=== PATIENT | female | born 1955 | race Caucasian/White ===

== ENCOUNTER → 2017-06-11 | Outpatient (CLI) | payer OTHER ==
[~2017-06-11] MED LIST: ADVI200C3 PO; ATOR40TA75 PO; CALCTAB88 PO; CALCTAB97 PO; CYMB60CA3 PO; LISI10TA4 PO; MELO15TA4 PO; METO50TA7 PO; MULTCAP PO; OMEP40CA2 PO; PRIL20CA9 PO
[2017-06-11 15:29] LABS: BASO % 0.3 % (0.0-1.0); EOS # 0.2 K/mm3 (0.0-0.50); EOS % 1.8 % (0.0-3.0); LARGE UNSTAINED CELL # 0.1 K/mm3 (0.0-0.4); LYMPH # 2.9 K/mm3 (1.5-4.5); LYMPH % 27.7 % (24.0-44.0); MEAN CORPUSCULAR HEMOGLOBIN 31.3 pg (27.0-33.0); MEAN CORPUSCULAR HGB CONC 34.1 g/dl (32.0-36.5); MEAN CORPUSCULAR VOLUME 91.8 fl (80.0-96.0); MONO # 0.4 K/mm3 (0.0-0.8); MONO % 4.4 % (0.0-5.0); NEUTROPHILS # 6.5 K/mm3 (1.8-7.7); NEUTROPHILS % 64.8 % (36.0-66.0); PLATELET COUNT, AUTOMATED 359 k/mm3 (150-450); RED CELL DISTRIBUTION WIDTH 12.8 % (11.5-14.5); WHITE BLOOD COUNT 10.1 K/mm3 (4.0-10.0)
[2017-06-11 16:20] LABS: ALBUMIN 3.8 GM/DL (3.2-5.2); ALBUMIN/GLOBULIN RATIO 1.15 (1.00-1.93); ALKALINE PHOSPHATASE 74 U/L (45-117); ALT/SGPT 43 U/L (12-78); ANION GAP 9 MEQ/L (8-16); AST/SGOT 53 U/L (15-37); BILIRUBIN,TOTAL 0.7 MG/DL (0.2-1.0); BLOOD UREA NITROGEN 15 MG/DL (7-18); CALCIUM LEVEL 9.4 MG/DL (8.8-10.2); CARBON DIOXIDE LEVEL 29 MEQ/L (21-32); CHLORIDE LEVEL 94 MEQ/L (98-107); CHOLESTEROL LEVEL 188 MG/DL (<200); CREATININE FOR GFR 0.74 MG/DL (0.55-1.02); GLOMERULAR FILTRATION RATE > 60.0 (>45); GLUCOSE, FASTING 97 MG/DL (80-110); POTASSIUM SERUM 3.8 MEQ/L (3.5-5.1); SODIUM LEVEL 132 MEQ/L (136-145); TOTAL PROTEIN 7.1 GM/DL (6.4-8.2); TRIGLYCERIDES LEVEL 126 MG/DL (<150)
== END ==
LOC: M LAB 15:05
PROVIDERS: ATTEND Family Medicine
DX: I10 Essential (primary) hypertension (principal)

== ENCOUNTER → 2017-09-12 | Outpatient (CLI) | payer OTHER ==
--- NOTE | 2017-09-12 17:14 | REP ---
LEFT WRIST: Four views: There is no evidence of an acute fracture, dislocation or intrinsic bone disease. I do not see significant arthritic changes. IMPRESSION: No fracture or dislocation. Further evaluation may be made with MRI if clinically indicated. Signed by Philippe Hennessy MD 09/13/2017 04:55 P
== END ==
LOC: M RAD 15:51
PROVIDERS: ATTEND Family Medicine
DX: M25.532 Pain in left wrist (principal)

== ENCOUNTER → 2018-02-03 | Outpatient (CLI) | payer OTHER | LOC: M WHC 15:13 | DX: Z12.31 Encounter for screening mammogram for malignant neoplasm of breast (principal) | CPT/HCPCS: 77067 ==

== ENCOUNTER → 2018-03-20 | Outpatient (CLI) | payer OTHER ==
[2018-03-20 14:32] LABS: BASO % 0.3 % (0.0-1.0); EOS # 0.1 10^3/uL (0.0-0.50); EOS % 0.4 % (0.0-3.0); HEMATOCRIT 35.4 % (36.0-47.0); HEMOGLOBIN 12.7 g/dl (12.0-15.5); IMMATURE GRANULOCYTE % 0.2 % (0-3.0); LYMPH # 2.5 10^3/uL (1.5-4.5); LYMPH % 17.8 % (24.0-44.0); MEAN CORPUSCULAR HEMOGLOBIN 31.8 pg (27.0-33.0); MEAN CORPUSCULAR HGB CONC 35.9 g/dl (32.0-36.5); MEAN CORPUSCULAR VOLUME 88.5 fl (80.0-96.0); MONO # 0.9 10^3/uL (0.0-0.8); MONO % 6.2 % (0.0-5.0); NEUTROPHILS # 10.5 10^3/uL (1.8-7.7); NEUTROPHILS % 75.1 % (36.0-66.0); PLATELET COUNT, AUTOMATED 357 10^3/uL (150-450); RED CELL DISTRIBUTION WIDTH 11.9 % (11.5-14.5)
[2018-03-20 15:19] LABS: ALBUMIN 3.9 GM/DL (3.2-5.2); ALBUMIN/GLOBULIN RATIO 1.22 (1.00-1.93); ALKALINE PHOSPHATASE 82 U/L (45-117); ALT/SGPT 28 U/L (12-78); ANION GAP 8 MEQ/L (8-16); AST/SGOT 21 U/L (7-37); BILIRUBIN,TOTAL 0.5 MG/DL (0.2-1.0); BLOOD UREA NITROGEN 25 MG/DL (7-18); CALCIUM LEVEL 9.3 MG/DL (8.8-10.2); CARBON DIOXIDE LEVEL 31 MEQ/L (21-32); CHLORIDE LEVEL 97 MEQ/L (98-107); CHOLESTEROL LEVEL 183 MG/DL (<200); CHOLESTEROL RISK RATIO 3.452 (<5); CREATININE FOR GFR 0.94 MG/DL (0.55-1.30); GLOMERULAR FILTRATION RATE > 60.0 (>45); GLUCOSE, FASTING 93 MG/DL (70-100); HDL CHOLESTEROL 53 MG/DL (>40); NON-HDL-C 130 MG/DL; POTASSIUM SERUM 3.6 MEQ/L (3.5-5.1); SODIUM LEVEL 136 MEQ/L (136-145); TOTAL PROTEIN 7.1 GM/DL (6.4-8.2); TRIGLYCERIDES LEVEL 180 MG/DL (<150)
== END ==
LOC: M LAB 13:57
DX: I10 Essential (primary) hypertension (principal)
CPT/HCPCS: 80053

== ENCOUNTER → 2018-03-26 | Outpatient (REF) | payer OTHER ==
[2018-04-05 00:12] LABS: FATS NEUTRAL Normal (.); FATS TOTAL Normal (.); PANCREATIC ELASTASE STOOL 366 (>200)
== END ==
LOC: M LAB REF 09:03
DX: R19.7 Diarrhea, unspecified (principal)
CPT/HCPCS: 82705

== ENCOUNTER → 2018-03-27 | Outpatient (CLI) | payer OTHER ==
[~2018-03-27] MED LIST changes: -ADVI200C3 PO; -ATOR40TA75 PO; -CALCTAB88 PO; -CALCTAB97 PO; -CYMB60CA3 PO; +GLUCAGON FOR INJ 1 MG VIAL (J1610) As Ordered; +ISOVUE-370 76% 100ML VIAL (Q9967) As Ordered; -LISI10TA4 PO; -MELO15TA4 PO; -METO50TA7 PO; -MULTCAP PO; -OMEP40CA2 PO; -PRIL20CA9 PO; +VoLumen 0.1% SUSPENSION 450ML BOTTLE As Ordered
== END ==
LOC: M RAD 08:44
DX: K52.89 Other specified noninfective gastroenteritis and colitis (principal); I70.0 Atherosclerosis of aorta
CPT/HCPCS: Q9967

== ENCOUNTER → 2018-04-04 | Outpatient (CLI) | payer OTHER ==
[2018-04-08 00:07] LABS: CHROMOGRANIN A 2 nmol/L (0-5); TISSUE TRANSGLUTAMINASE IgA <2 U/mL (0-3)
[2018-04-08 00:07] LABS: GASTRIN 63 pg/mL (0-115)
== END ==
LOC: M LAB 11:27
DX: R19.7 Diarrhea, unspecified (principal)
CPT/HCPCS: 82941

== ENCOUNTER 2018-04-28 11:22 | Day surgery (SDC) | payer OTHER ==
[2018-04-28] MEDS: NS 1,000 ML IV (11:45)
[2018-04-28] MEDS ORDERED: PROPOFOL 200 MG/20 ML VIAL As Ordered ×2 (12:33)
[2018-04-28] MEDS ORDERED: LIDOCAINE 2% INJ 100 MG/5 ML SDV (FOR ANES.) As Ordered (12:33)
[2018-04-28] MEDS ORDERED: fentaNYL 100 MCG/2 ML INJECTION (J3010) As Ordered (12:41)
== END 2018-04-28 14:17 | disposition home or self-care (01) ==
LOC: M OPP 11:22
DX: K52.9 Noninfective gastroenteritis and colitis, unspecified (principal); D12.2 Benign neoplasm of ascending colon; Q43.8 Other specified congenital malformations of intestine; I10 Essential (primary) hypertension; E78.5 Hyperlipidemia, unspecified; K21.9 Gastro-esophageal reflux disease without esophagitis; M19.90 Unspecified osteoarthritis, unspecified site; M54.89 Other dorsalgia; M54.2 Cervicalgia; F41.9 Anxiety disorder, unspecified; F32.9 Major depressive disorder, single episode, unspecified; G43.909 Migraine, unspecified, not intractable, without status migrainosus; F17.210 Nicotine dependence, cigarettes, uncomplicated; Z79.899 Other long term (current) drug therapy
CPT/HCPCS: 45385

== ENCOUNTER → 2018-05-02 | Outpatient (CLI) | payer OTHER ==
[2018-05-02 16:06] LABS: BASO % 0.4 % (0.0-1.0); EOS # 0.1 10^3/uL (0.0-0.50); EOS % 0.9 % (0.0-3.0); HEMATOCRIT 35.5 % (36.0-47.0); HEMOGLOBIN 12.8 g/dl (12.0-15.5); IMMATURE GRANULOCYTE % 0.2 % (0-3.0); LYMPH # 2.7 10^3/uL (1.5-4.5); LYMPH % 31.9 % (24.0-44.0); MEAN CORPUSCULAR HEMOGLOBIN 32.6 pg (27.0-33.0); MEAN CORPUSCULAR HGB CONC 36.1 g/dl (32.0-36.5); MEAN CORPUSCULAR VOLUME 90.3 fl (80.0-96.0); MONO # 0.6 10^3/uL (0.0-0.8); MONO % 6.9 % (0.0-5.0); NEUTROPHILS % 59.7 % (36.0-66.0); PLATELET COUNT, AUTOMATED 351 10^3/uL (150-450); RED BLOOD COUNT 3.93 10^6/uL (4.00-5.40); WHITE BLOOD COUNT 8.4 10^3/uL (4.0-10.0)
== END ==
LOC: M LAB 15:45
DX: D72.829 Elevated white blood cell count, unspecified (principal)
CPT/HCPCS: 85025

== ENCOUNTER → 2018-10-03 | Outpatient (CLI) | payer OTHER ==
[~2018-10-03] MED LIST changes: +ADVI200C3 PO; +ALKATAB PO; +ATOR40TA75 PO; +BUDE3CAP PO; +CALCTAB88 PO; +CALCTAB97 PO; +CHLO25TA PO; +CYMB60CA3 PO; +GABA-843 PO; -GLUCAGON FOR INJ 1 MG VIAL (J1610) As Ordered; -ISOVUE-370 76% 100ML VIAL (Q9967) As Ordered; +LISI10TA4 PO; +LOPE2CAP PO; +MAGN400T2 PO; +MELO15TA28 PO; +METO50TA7 PO; +MULTCAP PO; +OMEP40CA2 PO; +PRIL20CA9 PO; +SERT-138 PO; -VoLumen 0.1% SUSPENSION 450ML BOTTLE As Ordered
[2018-10-03 18:14] LABS: BASO # 0.1 10^3/uL (0.0-0.2); BASO % 0.4 % (0.0-1.0); EOS # 0.1 10^3/uL (0.0-0.50); EOS % 0.9 % (0.0-3.0); HEMATOCRIT 35.3 % (36.0-47.0); HEMOGLOBIN 12.5 g/dl (12.0-15.5); LYMPH % 29.1 % (24.0-44.0); MEAN CORPUSCULAR HEMOGLOBIN 32.3 pg (27.0-33.0); MEAN CORPUSCULAR HGB CONC 35.4 g/dl (32.0-36.5); MEAN CORPUSCULAR VOLUME 91.2 fl (80.0-96.0); MONO # 0.8 10^3/uL (0.0-0.8); MONO % 5.5 % (0.0-5.0); NEUTROPHILS # 8.9 10^3/uL (1.8-7.7); NEUTROPHILS % 63.8 % (36.0-66.0); PLATELET COUNT, AUTOMATED 430 10^3/uL (150-450); RED BLOOD COUNT 3.87 10^6/uL (4.00-5.40); WHITE BLOOD COUNT 13.9 10^3/uL (4.0-10.0)
[2018-10-03 18:36] LABS: ALT/SGPT 35 U/L (12-78); BILIRUBIN,TOTAL 0.5 MG/DL (0.2-1.0); BLOOD UREA NITROGEN 21 MG/DL (7-18); CARBON DIOXIDE LEVEL 28 MEQ/L (21-32); CHLORIDE LEVEL 100 MEQ/L (98-107); CHOLESTEROL LEVEL 232 MG/DL (<200); CHOLESTEROL RISK RATIO 5.948 (<5); CREATININE FOR GFR 0.99 MG/DL (0.55-1.30); GLOMERULAR FILTRATION RATE > 60.0 (>45); GLUCOSE, FASTING 104 MG/DL (70-100); HDL CHOLESTEROL 39 MG/DL (>40); LDL CHOLESTEROL 130 MG/DL (<100); NON-HDL-C 193 MG/DL; POTASSIUM SERUM 3.8 MEQ/L (3.5-5.1); SODIUM LEVEL 135 MEQ/L (136-145); TOTAL PROTEIN 7.3 GM/DL (6.4-8.2); TRIGLYCERIDES LEVEL 317 MG/DL (<150)
== END ==
LOC: M LAB 17:41
PROVIDERS: ATTEND Physician Assistant
DX: Z00.00 Encounter for general adult medical examination without abnormal findings (principal); I10 Essential (primary) hypertension

== ENCOUNTER → 2018-10-07 | Outpatient (CLI) | payer OTHER | LOC: M LAB 15:49 | PROVIDERS: ATTEND Family Medicine | DX: R30.0 Dysuria (principal) ==

== ENCOUNTER → 2018-10-08 | Outpatient (REF) | payer OTHER ==
[2018-10-08 10:12] LABS: APPEARANCE, URINE HAZY (CLEAR); BACTERIA, URINE AUTO NEGATIVE (NEGATIVE); BILIRUBIN, URINE AUTO NEGATIVE (NEGATIVE); BLOOD, URINE BLOOD NEGATIVE (NEGATIVE); COLOR, URINE YELLOW (YELLOW); GLUCOSE, URINE (UA) AUTO NEGATIVE (NEGATIVE); KETONE, URINE AUTO NEGATIVE (NEGATIVE); LEUKOCYTE ESTERASE, URINE AUTO NEGATIVE (NEGATIVE); MUCUS, URINE SMALL (NEGATIVE); NITRITE, URINE AUTO NEGATIVE (NEGATIVE); PROTEIN, URINE AUTO NEGATIVE (NEGATIVE); RBC, URINE AUTO 4 /HPF (0-3); SPECIFIC GRAVITY URINE AUTO 1.011 (1.002-1.035); SQUAMOUS EPITHELIAL CELL UR AU 0 /HPF (0-6); UROBILINOGEN, URINE AUTO 0.2 mg/dL (0.0-2.0); WBC, URINE AUTO 2 /HPF (0-3)
== END ==
LOC: M LAB REF 09:44
PROVIDERS: ATTEND Family Medicine
DX: R30.0 Dysuria (principal)

== ENCOUNTER → 2018-10-27 | Outpatient (REF) | payer OTHER | LOC: M LAB REF 15:04 | PROVIDERS: ATTEND Internal Medicine Gastroenterology | DX: R19.7 Diarrhea, unspecified (principal) ==

== ENCOUNTER → 2019-01-27 | Outpatient (CLI) | payer OTHER ==
[2019-01-27 16:24] LABS: BASO % 0.4 % (0.0-1.0); EOS # 0.1 10^3/uL (0.0-0.50); EOS % 0.9 % (0.0-3.0); HEMATOCRIT 33.8 % (36.0-47.0); HEMOGLOBIN 11.7 g/dl (12.0-15.5); LYMPH # 3.8 10^3/uL (1.5-4.5); LYMPH % 41.4 % (24.0-44.0); MEAN CORPUSCULAR HEMOGLOBIN 31.7 pg (27.0-33.0); MEAN CORPUSCULAR HGB CONC 34.6 g/dl (32.0-36.5); MEAN CORPUSCULAR VOLUME 91.6 fl (80.0-96.0); MONO # 0.6 10^3/uL (0.0-0.8); MONO % 6.5 % (0.0-5.0); NEUTROPHILS # 4.6 10^3/uL (1.8-7.7); NEUTROPHILS % 50.6 % (36.0-66.0); PLATELET COUNT, AUTOMATED 384 10^3/uL (150-450); RED BLOOD COUNT 3.69 10^6/uL (4.00-5.40); WHITE BLOOD COUNT 9.1 10^3/uL (4.0-10.0)
[2019-01-27 16:48] LABS: CALCIUM LEVEL 8.6 MG/DL (8.8-10.2); CREATININE FOR GFR 1.13 MG/DL (0.55-1.30); GLOMERULAR FILTRATION RATE 51.9 (>45); POTASSIUM SERUM 4.2 MEQ/L (3.5-5.1)
[2019-01-27 18:05] LABS: HEMOGLOBIN A1c 5.8 %
== END ==
LOC: M LAB 15:52
PROVIDERS: ATTEND Physician Assistant
DX: R73.01 Impaired fasting glucose (principal)

== ENCOUNTER → 2019-04-23 | Outpatient (CLI) | payer OTHER ==
--- NOTE | 2019-04-23 17:02 | REPMRS ---
Patient History The patient states she had a clinical breast exam in 05/2019. Patient is postmenopausal and is nulliparous. No known family history of cancer. No Hormone Replacement Therapy 3D TOMOSYNTHESIS WAS PERFORMED. [facility] for [facility] cancer [facility] 6.9%. Digital Woman Screen Mammo: April 23, 2019 - Exam #: [id number] Bilateral CC and MLO view(s) were taken. Technologist: Liza Lewis, Technologist Prior study comparison: February 03, 2018, digital woman screen mammo performed at [facility]. 2016, bilateral digital mammo screening bilat, performed at [facility]. FINDINGS: The breast tissue is heterogeneously dense. This may lower the sensitivity of mammography. There has been no change in the appearance of the mammogram from the prior studies. There is a moderate amount of residual fibroglandular tissue which is fairly symmetric. There is no interval development of dominant mass, areas of architectural distortion, or clustered microcalcification typical of malignancy. Assessment: BI-RADS/ACR category 1 mammogram. Negative Mammogram. Recommendation Routine screening mammogram in 1 year (for women over age 40). This mammogram was interpreted with the aid of an FDA-approved computer-aided dectection system. Electronically Signed By: Philippe Hennessy MD 04/23/19 [id number]
== END ==
LOC: M WHC 16:07
PROVIDERS: ATTEND Family Medicine
DX: Z12.31 Encounter for screening mammogram for malignant neoplasm of breast (principal); Z78.0 Asymptomatic menopausal state

== ENCOUNTER → 2019-07-06 | Outpatient (CLI) | payer OTHER | LOC: M LAB 15:14 | PROVIDERS: ATTEND Family Medicine | DX: M35.00 Sjogren syndrome, unspecified (principal) ==

== ENCOUNTER 2020-03-10 13:21 | Inpatient (IN) | payer OTHER, SELFPAY ==
[~2020-03-10] VITALS: Ht 152.4 cm; Wt 62.3 kg
[~2020-03-10 13:21] MED LIST changes: -OMEP40CA2 PO; +OMEP40CA97 PO
[2020-03-10 13:54] LABS: BASO % 0.2 % (0.0-1.0); EOS % 0.1 % (0.0-3.0); HEMATOCRIT 32.4 % (36.0-47.0); HEMOGLOBIN 11.3 g/dl (12.0-15.5); LYMPH # 1.3 10^3/uL (1.5-5.0); LYMPH % 5.5 % (24.0-44.0); MEAN CORPUSCULAR HEMOGLOBIN 30.4 pg (27.0-33.0); MEAN CORPUSCULAR HGB CONC 34.9 g/dl (32.0-36.5); MEAN CORPUSCULAR VOLUME 87.1 fl (80.0-96.0); MONO # 1.3 10^3/uL (0.0-0.8); MONO % 5.6 % (0.0-5.0); NEUTROPHILS # 20.6 10^3/uL (1.5-8.5); NEUTROPHILS % 87.8 % (36.0-66.0); PLATELET COUNT, AUTOMATED 308 10^3/uL (150-450); RED BLOOD COUNT 3.72 10^6/uL (4.00-5.40); WHITE BLOOD COUNT 23.5 10^3/uL (4.0-10.0)
[2020-03-10] MEDS ORDERED: NS 1,000 ML IV ONE (14:00)
[2020-03-10] MEDS ORDERED: DICL50TAB PO (14:07)
[2020-03-10] MEDS ORDERED: AMLO2.5T3 PO (14:07)
[2020-03-10 14:42] LABS: ALT/SGPT 26 U/L (12-78); BLOOD UREA NITROGEN 25 MG/DL (7-18); CARBON DIOXIDE LEVEL 18 MEQ/L (21-32); CHLORIDE LEVEL 111 MEQ/L (98-107); CPK CREATINE PHOSPHOKINASE 55 U/L (26-192); CREATININE FOR GFR 1.47 MG/DL (0.55-1.30); GLOMERULAR FILTRATION RATE 38.2 (>45); GLUCOSE, FASTING 91 MG/DL (70-100); POTASSIUM SERUM 3.4 MEQ/L (3.5-5.1); SODIUM LEVEL 140 MEQ/L (136-145)
[2020-03-10 14:43] LABS: ALBUMIN 3.2 GM/DL (3.2-5.2); BILIRUBIN,DIRECT < 0.1 MG/DL (0.0-0.2); BILIRUBIN,TOTAL 0.4 MG/DL (0.2-1.0); C REACTIVE PROTEIN QUANTITATIV 1.18 MG/DL (0.00-0.30); CK-MB VALUE MASS < 1.0 NG/ML (<3.6); LIPASE 179 U/L (73-393); MB/CK RELATIVE INDEX 1.82 (< OR =4); NT-PRO BNP 174 PG/ML (<125); TOTAL PROTEIN 6.3 GM/DL (6.4-8.2); TROPONIN I < 0.02 NG/ML (< 0.10)
[2020-03-10] MEDS ORDERED: NS IV ONE (14:45)
[2020-03-10] MEDS ORDERED: ISOVUE-370 76% 100ML VIAL As Ordered ONE (14:56)
[2020-03-10] MEDS ORDERED: PIPERACILLIN/TAZOBACTAM SOD 4.5 GM in D5W MINI-BAG PLUS 50 ML IV ONE (15:00)
[2020-03-10 15:06] LABS: ERYTHROCYTE SEDIMENTATION RATE 39 mm/hr (0-30)
--- NOTE | 2020-03-10 15:46 | REP ---
REASON FOR THIS EXAM: Chest pain. Latest prior for comparison is 09/27/2010. FINDINGS: The technique utilized in obtaining the radiograph has magnified the cardiac silhouette and accentuated the interstitial markings. The superior mediastinal structures are midline. The cardiac silhouette is unremarkable in size, shape, and position. The diaphragmatic surfaces of the lungs are regular, and the costophrenic angles are clear. The pulmonary cardenas are clear. The imaged osseous structures are intact. IMPRESSION: There is no acute cardiopulmonary disease. Electronically Signed by Shekhar Butcher DO 03/10/2020 05:07 P
--- NOTE | 2020-03-10 16:23 | REP ---
REASON FOR EXAM: Abdominal pain. The latest prior for comparison 06/16/2009. CONTRAST: 100 mL Isovue 370. The lung bases are clear. The liver, gallbladder, spleen, pancreas, adrenal glands, and kidneys are within normal limits. The abdominal aorta and para-aortic regions are within normal limits. There is calcific atherosclerotic changes seen involving the abdominal aorta status quo. The intra-abdominal and intrapelvic bowel loops and their mesenteries are essentially unchanged from the prior exam. There is no pericolonic fatty infiltration. The colon is noncontrast opacified limiting evaluation of it. Mild mural edema involving the ascending and transverse colon cannot be completely ruled out. There is no free fluid or free air seen in the abdomen or pelvis. There is no evidence of an intra-abdominal or intrapelvic mass or adenopathy. The osseous structures are stable and intact. IMPRESSION: CT findings are essentially within normal limits with the exception of possible mild mural edema involving the ascending and transverse colon without pericolonic inflammatory change. Since the colon is not opacified with oral or bowel preparatory contrast, evaluation of it is limited. The examination is otherwise unremarkable. Electronically Signed by Shekhar Butcher DO 03/10/2020 05:07 P
[2020-03-10] MEDS ORDERED: ONDANSETRON 4MG/2ML VIAL IV ONE (17:45)
[2020-03-10] MEDS ORDERED: MORPHINE 4 MG/ML 1ML VIAL/SYRINGE (J2270) IV ONE (17:45)
[2020-03-10] MEDS ORDERED: MOM 30ML SUSPENSION UDC PO PRN (18:15)
[2020-03-10] MEDS ORDERED: MAALOX 30 ML SUSP *UDC PO PRN (18:15)
[2020-03-10] MEDS ORDERED: METO1TAB33 PO (18:18)
[2020-03-10] MEDS ORDERED: LISI-538 PO (18:18)
[2020-03-10] MEDS ORDERED: OMEP-218 PO (18:18)
[2020-03-10] MEDS ORDERED: DISN1CHW3 PO (18:18)
[2020-03-10] MEDS ORDERED: GUMMCHW PO (18:18)
--- NOTE | 2020-03-10 18:23 | HPEPDOC ---
[facility] Medical History & Physical Date of Admission Mar 10, 2020 Date of Service: Mar 10, 2020 Primary Care Physician: Teri Smith MD Attending Physician: VIVIAN EARL MD History and Physical TIME OF SERVICE: 6:50 PM CHIEF COMPLAINT: Difficulties walking HISTORY OF PRESENT ILLNESS: This is a 64-year-old female who presented with multiple complaints including difficulties walking, feeling "numb all over", cold, having spasm in her legs and difficulties breathing. The symptoms began around lunchtime while she was at work. With more pointed questioning she admitted to having a fever, abdominal pain, increased thirst, pain with urination, and dark-colored urine. She has had diarrhea with 5-6 episodes per day for one month because he couldn't afford her budesonide. Based on CT scan findings of colon edema Samuel Trujillo consulted and ordered Zosyn for possible colitis.. REVIEW OF SYSTEMS: 12 point review of systems negative except as listed above PAST MEDICAL/ SURGICAL HISTORY: Ulcerative colitis with chronic joint pain Chronic hypertension Dyslipidemia Chronic neck and back pain Partial Hysterectomy She denies having a history of PA, CVA or diabetes SOCIAL HISTORY: She smokes. She doesn't drink FAMILY HISTORY: She denies having a family history of any medical problems ALLERGIES: Please see below. HOME MEDICATIONS: Please see below. PHYSICAL EXAMINATION: Vital Signs Date Time Temp Pulse Resp B/P (MAP) Pulse Ox O2 Delivery O2 Flow Rate FiO2 03/10/20 13:31 90/52 (65) 03/10/20 13:34 100.6 92 24 100 Room Air GEN: slim build/ well developed/ NAD INTEGUMENT: not flushed/ not jaundice HEENT: NCAT CVS: RRR/NMRG/ no lower extremity edema LUNGS: able to speak full sentences without stopping to take a breath / lungs a re clear to auscultation bilaterally on room air ABDOMEN: Contour (distended) /the abdomen is soft & tender with palpation of the epigastric region MSK/EXTREMITIES: range of motion intact in all 4 extremities NEURO: CN 2-12 are grossly intact / speech is not dysarthric PSYCH: alert and oriented to person place and time/ able to understand and follow all commands LABORATORY DATA: Immature Granulocyte % (Auto) 0.8, Neutrophils (%) (Auto) 87.8H, Lymphocytes (%) (Auto) 5.5L, Monocytes (%) (Auto) 5.6H, Eosinophils (%) (Auto) 0.1, Basophils (%) (Auto) 0.2, Neutrophils # (Auto) 20.6H, Lymphocytes # (Auto) 1.3L, Monocytes # (Auto) 1.3H, Eosinophils # (Auto) 0.0, Basophils # (Auto) 0.0, Nucleated Red Blood Cells % (auto) 0.0, Erythrocyte Sedimentation Rate 39H, Anion Gap 11, Glomerular Filtration Rate 38.2L, Calcium Level 8.0L, Total Bilirubin 0.4, Direct Bilirubin < 0.1, Aspartate Amino Transf (AST/SGOT) 17, Alanine Aminotransferase (ALT/SGPT) 26, Alkaline Phosphatase 95, Total Creatine Kinase 55, Creatine Kinase MB < 1.0, Creatine Kinase MB Relative Index 1.82, Troponin I < 0.02, C-Reactive Protein, Quantitative 1.18H, SY-Oyb-J-Type Natriuretic Peptide 174H, Total Protein 6.3L, Albumin 3.2, Albumin/Globulin Ratio 1.0L, Lipase 179, Thyroid Stimulating Hormone (TSH) 2.200 03/10/20 13:50: Lactic Acid Level 3.7*H 03/10/20 17:07: Urine Color YELLOW, Urine Appearance HAZY, Urine pH 5.0, Urine Specific [place] 1.032, Urine Protein NEGATIVE, Urine Glucose (UA) NEGATIVE, Urine Ketones N EGATIVE, Urine Blood NEGATIVE, Urine Nitrite POSITIVEH, Urine Bilirubin NEGATIVE, Urine Urobilinogen 0.2, Urine Leukocyte Esterase TRACEH, Urine WBC (Auto) 10H, Urine RBC (Auto) 3, Urine Hyaline Casts (Auto) 0, Urine Bacteria (Auto) 1+H, Urine Squamous Epithelial Cells 1, Urine Mucus (Auto) SMALL, Urine Sperm (Auto) IMAGING: CT abdomen and pelvis "IMPRESSION: CT findings are essentially within normal limits with the exception of possible mild mural edema involving the ascending and transverse colon without pericolonic inflammatory change. Since the colon is not opacified with oral or bowel preparatory contrast, evaluation of it is limited. The examination is otherwise unremarkable." MICROBIOLOGY: 03/10/20 Urine Culture, Received Pending 03/10/20 Blood Culture, Received Pending 03/10/20 Gastrointestinal Tract Panel (PCR) - Final, Complete 03/10/20 Blood Culture, Received Pending ASSESSMENT: Ms. Block is a 64-year-old with a history of ulcerative colitis,HTN, & dyslipidemia who is admitted for management of sepsis, possibly due to UTI, acute UC and MELE. PLAN: 1. Sepsis possibly 2/2 UTI SIRS criteria include HR >90 / WBC >12 / RR >20 Her lactic acid and CRP are elevated QSofa Score = 2points = high risk Source possibly UTI bc of dirty UA and urinary symptoms Plan: admit to PCU / telemetry / Sepsis protocol w repeat lactic / c/w Zosyn / IVF /f/u blood cx, UA w Cx / Acetaminophen PRN for fever / target MAP at least 65 to 70 mmHG / f/u Is and Os with target UOP of at least 0.5 ml/kg/H / target serum glucose 140-180 while acutely ill 2. Acute Ulcerative Colitis She has had 5-6 episodes of diarrhea daily for 1 month bc she can't afford her budesonide The Metabolic Acidosis is likey 2/2 chronic diarrhea Plan: start Solumedrol / she has an appointment w coming up soon / will cancel Gen Surgery Consult 3. MELE vs CKD MELE likely prerenal due to diarrhea Plan: IVF / f/u ulytes for FENa or FEUrea / renal US / hold lisinopril 4. Hypokalemia Likely extrarenal potassium loss ( diarrhea) Plan: add KCl to IVF / f/u Mg 5.Normocytic anemia - f/u iron panel 6. Chronic HTN - hold metoprolol, amoldipine and lisinopril bc BP is currently low 7. Dyslipidemia - DVT PROPHYLAXIS: Heparin DISPOSITION: home after more than 2 midnight's stay LATE ENTRY 8.Hypokalemia - IV mag sulfate / f/u repeat Mg in AM Home Medications Scheduled Amlodipine Besylate (Amlodipine Besylate) 2.5 Mg Tablet, 2.5 MG PO DAILY Atorvastatin Calcium (Atorvastatin Calcium) 40 Mg Tab, 40 MG PO DAILY Calcium Phosphate Trib/Vit D3 (Calcium + Vitamin D3 Gummies) 1 Each Tab.chew, 2 CHEW PO QHS Gabapentin (Gabapentin) 300 Mg Cap, 300 MG PO TID Lisinopril (Lisinopril) 20 Mg Tablet, 20 MG PO DAILY Metoprolol Succinate (Metoprolol Succinate) 100 Mg Tab.er.24h, 100 MG PO DAILY Multivitamin (Gummi Bear Multivitamin) 1 Each Tab.chew, 2 CHEW PO QHS Omeprazole (Omeprazole) 20 Mg Capsule.dr, 20 MG PO DAILY Sertraline HCl (Sertraline HCl) 100 Mg Tab, 100 MG PO DAILY Scheduled PRN Diclofenac Sodium (Diclofenac Sodium) 50 Mg Tablet.dr, 50 MG PO TID PRN for PAIN Allergies Coded Allergies: chlorthalidone (Verified Allergy, Unknown, 03/10/20) A-FIB/CHADSVASC A-FIB History Current/History of A-Fib/PAF?: No Current PO Anticoag Therapy: No VIVIAN EARL MD Mar 10, 2020 18:23
[2020-03-10] MEDS: KCL 20MEQ in NS 1000ML 1,000 ML IV SCH (19:02)
[2020-03-10 20:02] LABS: MAGNESIUM LEVEL 0.6 MG/DL (1.8-2.4)
[2020-03-10] MEDS ORDERED: MAG SULF 1GM/100ML (MAG RUN) 1 GM in IV 1 EA IV ONE (20:15)
[2020-03-10 20:30] VITALS: BP 100/57
[2020-03-10] MEDS: GABAPENTIN 300 MG CAP PO SCH (20:48)
[2020-03-10] MEDS: methylPREDNISolone INJ 125 MG/2 ML VIAL (J2930) IV SCH (20:48)
[2020-03-10] MEDS: HEPARIN SOD (PORCINE) 5000UNITS/ML VIAL (J1644 PER 1000UNITS) SC SCH (20:49)
--- NOTE | 2020-03-10 21:35 | ECGEPIP ---
[facility] - ED Test Date: 2020-03-10 Pat Name: REN SCHMIDT Department: Room: - Gender: Female Respiratory Equipment Assistant: dustin : 1955 Requested By: Radha De Santiago Order Number: [id number] Reading MD: John Mcguire Measurements Intervals [place] Rate: 90 P: 43 WI: 167 QRS: -7 QRSD: 92 T: 29 QT: 358 QTc: 439 Interpretive Statements SINUS RHYTHM MINIMAL ST DEPRESSION NO PRIORS FOR COMPARISON Electronically Signed on 03-10-2020 21:34:32 EDT by John Mcguire
[2020-03-11] VITALS: BP 113/59
[2020-03-11] MEDS: PIPERACILLIN/TAZOBACTAM SOD 3.375 GM in D5W MINI-BAG PLUS 50 ML IV SCH ×4 (00:25→23:30)
[2020-03-11] MEDS: MAG SULF 1GM/100ML (MAG RUN) 1 GM in IV 1 EA IV SCH ×5 (01:48→05:49)
[2020-03-11 04:00] VITALS: BP 124/66
[2020-03-11 05:08] LABS: HEMATOCRIT 28.6 % (36.0-47.0); HEMOGLOBIN 9.9 g/dl (12.0-15.5); MEAN CORPUSCULAR HEMOGLOBIN 30.7 pg (27.0-33.0); MEAN CORPUSCULAR HGB CONC 34.6 g/dl (32.0-36.5); MEAN CORPUSCULAR VOLUME 88.5 fl (80.0-96.0); PLATELET COUNT, AUTOMATED 274 10^3/uL (150-450); RED BLOOD COUNT 3.23 10^6/uL (4.00-5.40); WHITE BLOOD COUNT 15.4 10^3/uL (4.0-10.0)
[2020-03-11 05:30] LABS: CALCIUM LEVEL 7.4 MG/DL (8.8-10.2); CREATININE FOR GFR 1.01 MG/DL (0.55-1.30); GLOMERULAR FILTRATION RATE 58.9 (>45); MAGNESIUM LEVEL 2.2 MG/DL (1.8-2.4); POTASSIUM SERUM 3.8 MEQ/L (3.5-5.1)
[2020-03-11] MEDS: KCL 20MEQ in NS 1000ML 1,000 ML IV SCH ×2 (05:39→15:33)
[2020-03-11] MEDS: methylPREDNISolone INJ 125 MG/2 ML VIAL (J2930) IV SCH ×3 (05:39→20:28)
[2020-03-11] MEDS: HEPARIN SOD (PORCINE) 5000UNITS/ML VIAL (J1644 PER 1000UNITS) SC SCH ×3 (05:40→20:28)
[2020-03-11 08:00] VITALS: BP 104/57
[2020-03-11] MEDS: ACETAMINOPHEN TAB 650MG DOSE (2X325MG) PO PRN (10:06)
[2020-03-11] MEDS: OMEPRAZOLE 20 MG CAP PO SCH (10:30)
[2020-03-11] MEDS: GABAPENTIN 300 MG CAP PO SCH ×3 (10:30→20:28)
[2020-03-11] MEDS: SERTRALINE 100 MG TAB PO SCH (10:30)
[2020-03-11] MEDS: ATORVASTATIN 20 MG TAB PO SCH (10:32)
--- NOTE | 2020-03-11 10:34 | IPNPDOC ---
Text Note Date of Service The patient was seen on 03/11/20. NOTE Subjective: -NAD this AM, feels a bit better, however continued to have significant amount of diarrhea, 2 episodes thus far today. No abdominal pain Objective: GEN: NAD SKIN: No rashes or lesions HEENT: NCAT, PERRLA, EOMI, MMM CVS: RRR, no mrg LUNGS: CTAB ABDOMEN: Normoactive bowel sounds, soft, mild TTP in epigastrium, no rebound or guarding EXTREMITIES: WWP, no edema NEURO: CN 2-12 are grossly intact, speech is not dysarthric, range of motion intact in all 4 extremities PSYCH: AOx3 LABORATORY DATA: reviewed WBC 15.4 hgb 9.9 platelets 274 na 143 K 3.8 Cr 1.01 Mag 2.2 GI panel negative BCx pending UCx pending IMAGING: CT abdomen and pelvis "IMPRESSION: CT findings are essentially within normal limits with the exception of possible mild mural edema involving the ascending and transverse colon without pericolonic inflammatory change. Since the colon is not opacified with oral or bowel preparatory contrast, evaluation of it is limited. The examination is otherwise unremarkable." ASSESSMENT: 64-year-old W with UC ,HTN, & dyslipidemia who is admitted for management of sepsis, possibly due to UTI, acute UC flare in the setting of inability to afford her budesonide and MELE. PLAN: 1. Sepsis 2/2 UTI SIRS criteria include HR >90 / WBC >12 / RR >20 -c/w Zosyn for now, keeping broad also for empiric GI coverage -continue IVF, may dc this AM if taking good PO and diarrhea slowing down -f/u blood cx, UCx -Acetaminophen PRN 2. Potential acute Ulcerative Colitis flare in the setting of non-compliance with her budesonide due to cost -5-6 episodes of diarrhea daily for 1 month -Had NAGTYREE likey 2/2 chronic diarrhea -continue the Solumedrol 125Q8 -has an appointment w coming up soon in the outpatient setting. -Will need to work on helping her with the budesonide cost at discharge with patient reporting that she is uninsured since 09/2019 when her job changed their insurance provider. PFS consulted. 3. MELE vs CKD: resolved. -prerenal due to diarrhea, resolved with hydration -holding lisinopril, will resume if indicated 4. Hypokalemia Likely extrarenal potassium loss ( diarrhea), replete 5. Hypomagnesemia: -Likely same as hypokalemia, repleted, monitor 6.Normocytic anemia - f/u iron panel 7. Chronic HTN - continue holding metoprolol, amlodipine and lisinopril while BP is relatively low DVT PROPHYLAXIS: Heparin DISPOSITION: home after more than 2 midnight's stay VS,Derek, I+O VS, Derek, I+O Laboratory Tests 03/10/20 13:36 03/10/20 19:22 03/11/20 04:38 Vital Signs Date Time Temp Pulse Resp B/P (MAP) Pulse Ox O2 Delivery O2 Flow Rate FiO2 03/11/20 08:00 97.3 67 16 104/57 (73) 93 Room Air I&O- Last 24 Hours up to 6 AM 03/11/20 05:59 Intake Total 2110 ml Output Total 300 ml Balance 1810 ml JANEEN BOWMAN MD Mar 11, 2020 08:54
[2020-03-11 12:00] VITALS: BP 129/64
[2020-03-11 16:00] VITALS: BP 120/56
[2020-03-11 20:00] VITALS: BP 122/58
[2020-03-12] VITALS: BP 134/73
[2020-03-12] MEDS: KCL 20MEQ in NS 1000ML 1,000 ML IV SCH (02:40)
[2020-03-12 04:00] VITALS: BP 136/66
[2020-03-12] MEDS: methylPREDNISolone INJ 125 MG/2 ML VIAL (J2930) IV SCH (05:32)
[2020-03-12] MEDS: HEPARIN SOD (PORCINE) 5000UNITS/ML VIAL (J1644 PER 1000UNITS) SC SCH ×3 (05:33→21:10)
--- NOTE | 2020-03-12 07:21 | IPNPDOC ---
Text Note Date of Service The patient was seen on 03/12/20. NOTE Subjective: -NAD this AM, continues to feel better -Much improved diarrhea, no abdominal pain Objective: GEN: NAD SKIN: No rashes or lesions HEENT: NCAT, PERRLA, EOMI, MMM CVS: RRR, no mrg LUNGS: CTAB ABDOMEN: Normoactive bowel sounds, soft, mild TTP in epigastrium, no rebound or guarding EXTREMITIES: WWP, no edema NEURO: CN 2-12 are grossly intact, speech is not dysarthric, range of motion intact in all 4 extremities PSYCH: AOx3 LABORATORY DATA: reviewed. AM labs pending GI panel negative BCx NGTD UCx growing klebsiella IMAGING: CT abdomen and pelvis "IMPRESSION: CT findings are essentially within normal limits with the exception of possible mild mural edema involving the ascending and transverse colon without pericolonic inflammatory change. Since the colon is not opacified with oral or bowel preparatory contrast, evaluation of it is limited. The examination is otherwise unremarkable." ASSESSMENT: 64-year-old W with UC ,HTN, & dyslipidemia who is admitted for management of sepsis 2/2 Klebsiella UTI, acute UC flare in the setting of inability to afford her budesonide and MELE. PLAN: 1. Sepsis 2/2 UTI SIRS criteria include HR >90 / WBC >12 / RR >20 -discontinue Zosyn and switch to keflex 500 Q6H for klebs UTI -discontinue IVF with resolution of diarrhea -f/u blood cx NGTD -Acetaminophen PRN 2. Potential acute Ulcerative Colitis flare in the setting of non-compliance with her budesonide due to cost -5-6 episodes of diarrhea daily for 1 month, only 2 charted yesterday. -Had SUSY cheung 2/2 chronic diarrhea -switch from Solumedrol 125Q8 to 9mg PO budesonide daily -has an appointment w coming up soon in the outpatient setting. -Will need to work on helping her with the budesonide cost at discharge with patient reporting that she is uninsured since 09/2019 when her job changed their insurance provider. PFS consulted. 3. MELE vs CKD: resolved. -prerenal due to diarrhea, resolved with hydration -holding lisinopril, will resume if indicated 4. Hypokalemia Likely extrarenal potassium loss ( diarrhea), replete 5. Hypomagnesemia: -Likely same as hypokalemia, repleted, monitor 6.Normocytic anemia - f/u iron panel 7. Chronic HTN - continue holding metoprolol, amlodipine and lisinopril while BP is relatively low DVT PROPHYLAXIS: Heparin DISPOSITION: home after observing continued clinical improvement on now PO abx and PO steroids. Likely home in the next 1-2 days VS,Fishbone, I+O VS, Fishbone, I+O Vital Signs Date Time Temp Pulse Resp B/P (MAP) Pulse Ox O2 Delivery O2 Flow Rate FiO2 03/12/20 04:00 97.1 56 16 136/66 (89) 95 Room Air I&O- Last 24 Hours up to 6 AM 03/12/20 06:00 Intake Total 840 ml Output Total 1250 ml Balance -410 ml JANEEN BOWMAN MD Mar 12, 2020 07:21
[2020-03-12 07:41] LABS: HEMOGLOBIN 9.3 g/dl (12.0-15.5); MEAN CORPUSCULAR HEMOGLOBIN 30.2 pg (27.0-33.0); MEAN CORPUSCULAR HGB CONC 33.2 g/dl (32.0-36.5); MEAN CORPUSCULAR VOLUME 90.9 fl (80.0-96.0); PLATELET COUNT, AUTOMATED 270 10^3/uL (150-450); RED BLOOD COUNT 3.08 10^6/uL (4.00-5.40); WHITE BLOOD COUNT 16.1 10^3/uL (4.0-10.0)
[2020-03-12 08:00] VITALS: BP 169/80
[2020-03-12] MEDS: GABAPENTIN 300 MG CAP PO SCH ×3 (08:35→21:09)
[2020-03-12] MEDS: BUDESONIDE EC 3 MG CAP (ENTOCORT EC) PO SCH (08:36)
[2020-03-12] MEDS: ATORVASTATIN 20 MG TAB PO SCH (08:36)
[2020-03-12] MEDS: SERTRALINE 100 MG TAB PO SCH (08:36)
[2020-03-12] MEDS: OMEPRAZOLE 20 MG CAP PO SCH (08:36)
[2020-03-12] MEDS: CEPHALEXIN 500 MG CAP PO SCH ×3 (08:36→21:09)
[2020-03-12] MEDS ORDERED: MORPHINE 2 MG/ML 1ML VIAL (J2270) IV PRN (09:00)
[2020-03-12 10:58] LABS: BLOOD UREA NITROGEN 11 MG/DL (7-18); CALCIUM LEVEL 7.7 MG/DL (8.8-10.2); CARBON DIOXIDE LEVEL 23 MEQ/L (21-32); CHLORIDE LEVEL 116 MEQ/L (98-107); CREATININE FOR GFR 0.66 MG/DL (0.55-1.30); GLOMERULAR FILTRATION RATE > 60.0 (>45); GLUCOSE, FASTING 150 MG/DL (70-100); POTASSIUM SERUM 3.9 MEQ/L (3.5-5.1); SODIUM LEVEL 142 MEQ/L (136-145)
[2020-03-12 12:00] VITALS: BP 138/74
[2020-03-12] MEDS: lisinopriL 20 MG TAB PO SCH (14:02)
[2020-03-12] MEDS: METOPROLOL SUCC (TopROL XL) 100MG *XL* TAB PO SCH (14:03)
[2020-03-12 20:00] VITALS: BP 160/80
[2020-03-13] MEDS: CEPHALEXIN 500 MG CAP PO SCH (02:59)
[2020-03-13 04:00] VITALS: BP 155/74
[2020-03-13 05:06] LABS: HEMATOCRIT 29.3 % (36.0-47.0); HEMOGLOBIN 10.1 g/dl (12.0-15.5); MEAN CORPUSCULAR HEMOGLOBIN 30.9 pg (27.0-33.0); MEAN CORPUSCULAR HGB CONC 34.5 g/dl (32.0-36.5); MEAN CORPUSCULAR VOLUME 89.6 fl (80.0-96.0); PLATELET COUNT, AUTOMATED 300 10^3/uL (150-450); RED BLOOD COUNT 3.27 10^6/uL (4.00-5.40); WHITE BLOOD COUNT 18.7 10^3/uL (4.0-10.0)
[2020-03-13 05:24] LABS: BLOOD UREA NITROGEN 10 MG/DL (7-18); CALCIUM LEVEL 8.1 MG/DL (8.8-10.2); CARBON DIOXIDE LEVEL 24 MEQ/L (21-32); CHLORIDE LEVEL 115 MEQ/L (98-107); CREATININE FOR GFR 0.63 MG/DL (0.55-1.30); GLOMERULAR FILTRATION RATE > 60.0 (>45); GLUCOSE, FASTING 83 MG/DL (70-100); MAGNESIUM LEVEL 1.8 MG/DL (1.8-2.4); POTASSIUM SERUM 3.5 MEQ/L (3.5-5.1); SODIUM LEVEL 146 MEQ/L (136-145)
[2020-03-13] MEDS: HEPARIN SOD (PORCINE) 5000UNITS/ML VIAL (J1644 PER 1000UNITS) SC SCH ×3 (06:03→22:11)
[2020-03-13 06:18] VITALS: BP 154/74
[2020-03-13] MEDS: ACETAMINOPHEN TAB 650MG DOSE (2X325MG) PO PRN ×2 (06:23→17:12)
[2020-03-13] MEDS: BUDESONIDE EC 3 MG CAP (ENTOCORT EC) PO SCH (09:52)
[2020-03-13] MEDS: lisinopriL 20 MG TAB PO SCH (09:53)
[2020-03-13] MEDS: CIPROFLOXACIN 500MG TABLET PO SCH ×2 (09:54→17:03)
[2020-03-13] MEDS: SERTRALINE 100 MG TAB PO SCH (09:54)
[2020-03-13] MEDS: METOPROLOL SUCC (TopROL XL) 100MG *XL* TAB PO SCH (09:54)
[2020-03-13] MEDS: OMEPRAZOLE 20 MG CAP PO SCH (09:54)
[2020-03-13] MEDS: GABAPENTIN 300 MG CAP PO SCH ×3 (09:54→20:31)
[2020-03-13] MEDS: ATORVASTATIN 20 MG TAB PO SCH (09:54)
[2020-03-13 10:00] VITALS: BP 142/71
[2020-03-13] MEDS ORDERED: MAG SULF 1GM/100ML (MAG RUN) 1 GM in IV 1 EA IV ONE (10:00)
[2020-03-13] MEDS ORDERED: POTASSIUM CHLORIDE 10 MEQ SR TABLET PO ONE (10:00)
--- NOTE | 2020-03-13 11:36 | IPNPDOC ---
Text Note Date of Service The patient was seen on 03/13/20. NOTE Subjective: -Low grade fever to 100.1 this morning, otherwise feels ok -3BMs yesterday Objective: GEN: NAD SKIN: No rashes or lesions HEENT: NCAT, PERRLA, EOMI, MMM CVS: RRR, no mrg LUNGS: CTAB ABDOMEN: Normoactive bowel sounds, soft, mild TTP in epigastrium, no rebound or guarding EXTREMITIES: WWP, no edema NEURO: CN 2-12 are grossly intact, speech is not dysarthric, range of motion intact in all 4 extremities PSYCH: AOx3 LABORATORY DATA: reviewed. WBC 18.7, hgb 10.1, platelets 300, K 3.5, mag 1.8, Cr 0.63 GI panel negative BCx NGTD UCx growing klebsiella IMAGING: CT abdomen and pelvis "IMPRESSION: CT findings are essentially within normal limits with the exception of possible mild mural edema involving the ascending and transverse colon without pericolonic inflammatory change. Since the colon is not opacified with oral or bowel preparatory contrast, evaluation of it is limited. The examination is otherwise unremarkable." ASSESSMENT: 64-year-old W with UC ,HTN, & dyslipidemia who is admitted for management of sepsis 2/2 Klebsiella UTI, acute UC flare in the setting of inability to afford her budesonide and MELE. PLAN: 1. Sepsis 2/2 UTI SIRS criteria include HR >90 / WBC >12 / RR >20 -discontinue keflex 500 Q6H for klebs UTI, switch to cipro to also add GI coverage -f/u blood cx NGTD -Acetaminophen PRN 2. Potential acute Ulcerative Colitis flare in the setting of non-compliance with her budesonide due to cost -5-6 episodes of diarrhea daily for 1 month, only 2 charted yesterday. -Had NAGMA likey 2/2 chronic diarrhea -continue 9mg PO budesonide daily -continue cipro that covers both Klebs UTI and empiric GI coverage -has an appointment w coming up soon in the outpatient setting. -Will need to work on helping her with the budesonide cost at discharge with patient reporting that she is uninsured since 09/2019 when her job changed their insurance provider. PFS consulted. 3. MELE vs CKD: resolved. -prerenal due to diarrhea, resolved with hydration -holding lisinopril, will resume if indicated 4. Hypokalemia Likely extrarenal potassium loss ( diarrhea), replete with 40meq this AM 5. Hypomagnesemia: -Likely same as hypokalemia, replete with 1 g IV this AM 6.Normocytic anemia - f/u iron panel 7. Chronic HTN - continue holding metoprolol, amlodipine and lisinopril while BP is relatively low DVT PROPHYLAXIS: Heparin DISPOSITION: home after observing continued clinical improvement now PO abx and PO steroids and secured her budesonide script and a way to afford it until she is seen by GI as an outpatient. Likely home in the next 1-2 days VS, Fishbone, I+O VS,Fishbone, I+O VS, Fishbone, I+O Laboratory Tests 03/13/20 04:46 Vital Signs Date Time Temp Pulse Resp B/P (MAP) Pulse Ox O2 Delivery O2 Flow Rate FiO2 03/13/20 06:18 100.1 78 20 154/74 (100) 93 Room Air I&O- Last 24 Hours up to 6 AM 03/13/20 06:00 Intake Total 2190 ml Output Total 1500 ml Balance 690 ml JANEEN BOWMAN MD Mar 13, 2020 09:22
[2020-03-13 14:00] VITALS: BP 121/64
[2020-03-13 18:00] VITALS: BP 144/72
[2020-03-13] MEDS: metroNIDAZOLE (FLAGYL) 500 MG TAB PO SCH (20:31)
[2020-03-13 22:00] VITALS: BP 145/71
[2020-03-14 02:00] VITALS: BP 148/72
[2020-03-14 05:40] LABS: HEMATOCRIT 27.7 % (36.0-47.0); HEMOGLOBIN 9.7 g/dl (12.0-15.5); MEAN CORPUSCULAR HEMOGLOBIN 31.1 pg (27.0-33.0); MEAN CORPUSCULAR VOLUME 88.8 fl (80.0-96.0); PLATELET COUNT, AUTOMATED 282 10^3/uL (150-450); RED BLOOD COUNT 3.12 10^6/uL (4.00-5.40); WHITE BLOOD COUNT 12.1 10^3/uL (4.0-10.0)
[2020-03-14] MEDS: CIPROFLOXACIN 500MG TABLET PO SCH ×2 (05:49→16:50)
[2020-03-14] MEDS: HEPARIN SOD (PORCINE) 5000UNITS/ML VIAL (J1644 PER 1000UNITS) SC SCH ×3 (05:49→21:07)
[2020-03-14 06:00] VITALS: BP 147/74
[2020-03-14 06:10] LABS: BLOOD UREA NITROGEN 7 MG/DL (7-18); CALCIUM LEVEL 7.8 MG/DL (8.8-10.2); CARBON DIOXIDE LEVEL 27 MEQ/L (21-32); CHLORIDE LEVEL 108 MEQ/L (98-107); CREATININE FOR GFR 0.59 MG/DL (0.55-1.30); GLOMERULAR FILTRATION RATE > 60.0 (>45); GLUCOSE, FASTING 93 MG/DL (70-100); MAGNESIUM LEVEL 1.6 MG/DL (1.8-2.4); POTASSIUM SERUM 3.6 MEQ/L (3.5-5.1); SODIUM LEVEL 143 MEQ/L (136-145)
[2020-03-14] MEDS: ACETAMINOPHEN TAB 650MG DOSE (2X325MG) PO PRN ×2 (06:37→21:07)
[2020-03-14] MEDS ORDERED: MAG SULF 1GM/100ML (MAG RUN) 1 GM in IV 1 EA IV ONE (08:00)
[2020-03-14] MEDS: ATORVASTATIN 20 MG TAB PO SCH (08:17)
[2020-03-14] MEDS: lisinopriL 20 MG TAB PO SCH (08:17)
[2020-03-14] MEDS: metroNIDAZOLE (FLAGYL) 500 MG TAB PO SCH ×2 (08:17→16:50)
[2020-03-14] MEDS: BUDESONIDE EC 3 MG CAP (ENTOCORT EC) PO SCH (08:17)
[2020-03-14] MEDS: OMEPRAZOLE 20 MG CAP PO SCH (08:17)
[2020-03-14] MEDS: GABAPENTIN 300 MG CAP PO SCH ×3 (08:18→21:06)
[2020-03-14] MEDS: SERTRALINE 100 MG TAB PO SCH (08:18)
[2020-03-14] MEDS: METOPROLOL SUCC (TopROL XL) 100MG *XL* TAB PO SCH (08:18)
[2020-03-14 10:00] VITALS: BP 129/63
[2020-03-14 14:00] VITALS: BP 130/70
--- NOTE | 2020-03-14 18:25 | CR.PDOC ---
General Date of Consultation: Mar 14, 2020 Referring Provider: MARYLOU SULLIVAN MD Attending Physician: RAGHAVENDRA PRITCHETT MD Consultation Primary physician/ hospitalist: -Dr. Marylou Sullivan Reason for consult: - Evaluation of diarrhea and low grade fever. 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 Figueroa) was admitted to [facility] for UTI and sepsis. Patient also haivng diarrhea with upto 5-6 loose stooler per day ( as she was not taking budesonide). Patient reports while taking budesonide her diarrhea was well controlled. Patient was treated with antibiotics for UTI and resume Don budesonide while in hospital. Patient continues to have low-grade fever despite improvement in her bowel habits and urinary symptoms. GI was consulted for further evaluation of colitis. Pertinent negative GI symptoms: Patient denies, sick contacts, recent travel, loss of appetite, early satiety or unintentional weight loss. No history of hematemesis, melena or hematochezia. Review of Systems: GI: as stated above CVS: No chest pain, No palpitations, No leg swelling. 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 Skin: No rash : No hematuria, No burning sensation of the urine ENT: No ear discharge/ pain, No dysphagia. Eyes: No photophobia. Jaundice Home medications: reviewed. Antithrombotic agents: -None Medical h/o: As above. Surgical h/o: None on abdomen. Social h/o: Alcohol: -. Denies, smoking: Active smoker, IVDA/ drugs: Denies. Family h/o of GI cancers - None Prior Endoscopies: Last EGD and colonoscopy in March [address] Figueroa -- normal EGD, sessile polyps in ascending colon, tortuous sigmoid colon, rest of the colon - Normal. Random colon biopsies normal in pathology, few tubular adenomas, no celiac disease on small bowel biopsy. Prior GI evaluations: -Follows with Dr. Figueroa in [facility]. Exam: Vitals: reviewed General: Alert and oriented x 3, not in distress HEENT: NO pallor, no icterus. Normal oropharynx, NO cervical lymph nodes. Chest: symmetric with bilateral clear air entry, CVS: S1, S2 heard, normal, no murmurs . Abdomen: non-distended, no surgical scars, soft, non-tender, no palpable masses, normal bowel sounds heard. Rectal exam: Patient refused / Deferred at this time in view of scheduled colono scopy. Extremities: no pedal edema, pulses palpable. LAUNDRY TECHNICIAN: no focal motor or sensory deficits. Moves all extremities Skin: no rash. Labs: reviewed. Imaging: reviewed. Impression: - Chronic diarrhea from microsocpic colitis and not taking medication due to insurance issues. Currently symptoms improved on resumption of oral budesonide. - Low grade fever with UTI and sepsis. - on antibiotics. Recommendations: - Patient educated about the test results, possible differential diagnoses and All questions answered. 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 - Follow up the repeat septic work up. - At this time as the diarrhea is improving and stool panel negative, unlikely the cause for patient fevers. Consider discontinuing the metronidazole and patient would not need antibiotics for GI source. - Patient is educated to avoid NSAIDs ( including diclofenac) as they can worsen Microscopic colitis. - Adjust antibiotics for the UTI as per the primary team and culture/ sensitivities. - Patient to follow up with [facility] clinic for routine follow up for correction management of microscopic colitis. Plan of care discussed with patient and primary team. Patient verbalized understanding and agreed with the plan. Vital Signs/I&O Vital Signs Date Time Temp Pulse Resp B/P (MAP) Pulse Ox O2 Delivery O2 Flow Rate FiO2 03/14/20 14:00 98.4 59 19 130/70 (90) 97 Room Air I&O- Last 24 Hours up to 6 AM 03/14/20 06:00 Intake Total 2000 ml Output Total 1700 ml Balance 300 ml Laboratory Data Labs 24H Laboratory Tests 2 03/14/20 05:06: Nucleated Red Blood Cells % (auto) 0.0, Anion Gap 8, Glomerular Filtration Rate > 60.0, Calcium Level 7.8L, Magnesium Level 1.6L CBC/BMP Laboratory Tests 03/14/20 05:06 Microbiology Microbiology 03/13/20 Blood Culture, Received Pending 03/13/20 Blood Culture, Received Pending 03/10/20 Urine Culture - Final, Complete Klebsiella Pneumoniae 03/10/20 Blood Culture - Preliminary, Resulted No Growth after 72 hours. All specime... 03/10/20 Gastrointestinal Tract Panel (PCR) - Final, Complete 03/10/20 Blood Culture - Preliminary, Resulted No Growth after 72 hours. All specime... Allergies Coded Allergies: chlorthalidone (Verified Allergy, Unknown, 03/10/20) Home Medications Scheduled Amlodipine Besylate (Amlodipine Besylate) 2.5 Mg Tablet, 2.5 MG PO DAILY, (Reported) Atorvastatin Calcium (Atorvastatin Calcium) 40 Mg Tab, 40 MG PO DAILY, (Reported) Calcium Phosphate Trib/Vit D3 (Calcium + Vitamin D3 Gummies) 1 Each Tab.chew, 2 CHEW PO QHS, (Reported) Gabapentin (Gabapentin) 300 Mg Cap, 300 MG PO TID, (Reported) Lisinopril (Lisinopril) 20 Mg Tablet, 20 MG PO DAILY, (Reported) Metoprolol Succinate (Metoprolol Succinate) 100 Mg Tab.er.24h, 100 MG PO DAILY, (Reported) Multivitamin (Gummi Bear Multivitamin) 1 Each Tab.chew, 2 CHEW PO QHS, (Reported) Omeprazole (Omeprazole) 20 Mg Capsule.dr, 20 MG PO DAILY, (Reported) Sertraline HCl (Sertraline HCl) 100 Mg Tab, 100 MG PO DAILY, (Reported) Scheduled PRN Diclofenac Sodium (Diclofenac Sodium) 50 Mg Tablet.dr, 50 MG PO TID PRN for PAIN, (Reported) RAGHAVENDRA PRITCHETT MD Mar 14, 2020 18:25
--- NOTE | 2020-03-14 19:08 | IPNPDOC ---
Text Note Date of Service The patient was seen on 03/14/20. NOTE Subjective: -Low grade fever this morning -Otherwise no complaints Objective: GEN: NAD SKIN: No rashes or lesions HEENT: NCAT, PERRLA, EOMI, MMM CVS: RRR, no mrg LUNGS: CTAB ABDOMEN: Normoactive bowel sounds, soft, NTND, no rebound or guarding EXTREMITIES: WWP, no edema NEURO: CN 2-12 are grossly intact, speech is not dysarthric, range of motion intact in all 4 extremities PSYCH: AOx3 LABORATORY DATA: reviewed. WBC 12.1, hgb 9.7, platelets 297, K 3.6, mag 1.6 (repleted), Cr 0.64 GI panel negative BCx NGTD UCx growing klebsiella IMAGING: CT abdomen and pelvis "IMPRESSION: CT findings are essentially within normal limits with the exception of possible mild mural edema involving the ascending and transverse colon without pericolonic inflammatory change. Since the colon is not opacified with oral or bowel preparatory contrast, evaluation of it is limited. The examination is otherwise unremarkable." ASSESSMENT: 64-year-old W with UC ,HTN, & dyslipidemia who is admitted for management of sepsis 2/2 Klebsiella UTI, acute UC flare in the setting of inability to afford her budesonide and MELE with course c/b fevers. PLAN: 1. Sepsis 2/2 UTI SIRS criteria include HR >90 / WBC >12 / RR >20 -2/2 Klebs UTI on cipro to also add GI coverage. have treated for 5d at this point. Can stop tomorrow if afebrile. -f/u blood cx NGTD -Acetaminophen PRN 2. Potential acute Ulcerative Colitis flare in the setting of non-compliance with her budesonide due to cost -5-6 episodes of diarrhea daily for 1 month, now well controlled -Had NAGMA likey 2/2 chronic diarrhea -continue 9mg PO budesonide daily with taper per GI recs -continue cipro that covers both Klebs UTI and empiric GI coverage today, discontinue tomorrow if clinically stable without fevers. With plan for budesonide taper by 3mg every 4 weeks per GI recs. -has an appointment w coming up soon in the outpatient setting. -PFS working on helping with insurance coverage vs. affording her steroids. -dc flagyl -consulted GI, appreciate recs 3. MELE vs CKD: resolved. -prerenal due to diarrhea, resolved with hydration -holding lisinopril, will resume if indicated 4. Hypokalemia 2/2 diarrhea, repleted 5. Hypomagnesemia: -Likely same as hypokalemia, replete with 1 g IV this AM 6.Normocytic anemia - f/u iron panel 7. Chronic HTN - continue holding metoprolol, amlodipine and lisinopril while BP is relatively low DVT PROPHYLAXIS: Heparin DISPOSITION: home after observing continued clinical improvement on PO steroids and secured her budesonide script and a way to afford it until she is seen by GI as an outpatient. Likely home in the next 24-48h VS,Derek, I+O VS, Derek, I+O Laboratory Tests 03/14/20 05:06 Vital Signs Date Time Temp Pulse Resp B/P (MAP) Pulse Ox O2 Delivery O2 Flow Rate FiO2 03/14/20 14:00 98.4 59 19 130/70 (90) 97 Room Air I&O- Last 24 Hours up to 6 AM 03/14/20 06:00 Intake Total 2000 ml Output Total 1700 ml Balance 300 ml JANEEN BOWMAN MD Mar 14, 2020 19:08
[2020-03-14 22:00] VITALS: BP 157/79
[2020-03-15 02:00] VITALS: BP 158/81
[2020-03-15] MEDS: CIPROFLOXACIN 500MG TABLET PO SCH (05:16)
[2020-03-15] MEDS: HEPARIN SOD (PORCINE) 5000UNITS/ML VIAL (J1644 PER 1000UNITS) SC SCH ×2 (05:16→14:00)
[2020-03-15 06:00] VITALS: BP 159/82
[2020-03-15 06:29] LABS: HEMATOCRIT 28.8 % (36.0-47.0); HEMOGLOBIN 9.9 g/dl (12.0-15.5); MEAN CORPUSCULAR HEMOGLOBIN 30.3 pg (27.0-33.0); MEAN CORPUSCULAR HGB CONC 34.4 g/dl (32.0-36.5); MEAN CORPUSCULAR VOLUME 88.1 fl (80.0-96.0); PLATELET COUNT, AUTOMATED 306 10^3/uL (150-450); RED BLOOD COUNT 3.27 10^6/uL (4.00-5.40); WHITE BLOOD COUNT 10.2 10^3/uL (4.0-10.0)
[2020-03-15 06:57] LABS: BLOOD UREA NITROGEN 8 MG/DL (7-18); CALCIUM LEVEL 8.2 MG/DL (8.8-10.2); CARBON DIOXIDE LEVEL 30 MEQ/L (21-32); CHLORIDE LEVEL 107 MEQ/L (98-107); CREATININE FOR GFR 0.62 MG/DL (0.55-1.30); GLOMERULAR FILTRATION RATE > 60.0 (>45); GLUCOSE, FASTING 97 MG/DL (70-100); MAGNESIUM LEVEL 1.7 MG/DL (1.8-2.4); POTASSIUM SERUM 3.3 MEQ/L (3.5-5.1); SODIUM LEVEL 143 MEQ/L (136-145)
[2020-03-15] MEDS: BUDESONIDE EC 3 MG CAP (ENTOCORT EC) PO SCH (08:13)
[2020-03-15] MEDS: ATORVASTATIN 20 MG TAB PO SCH (08:13)
[2020-03-15] MEDS: GABAPENTIN 300 MG CAP PO SCH (08:13)
[2020-03-15] MEDS: SERTRALINE 100 MG TAB PO SCH (08:13)
[2020-03-15] MEDS: METOPROLOL SUCC (TopROL XL) 100MG *XL* TAB PO SCH (08:13)
[2020-03-15 08:14] VITALS: BP 136/75
[2020-03-15] MEDS: ACETAMINOPHEN TAB 650MG DOSE (2X325MG) PO PRN (08:14)
[2020-03-15] MEDS: lisinopriL 20 MG TAB PO SCH (08:14)
[2020-03-15] MEDS: OMEPRAZOLE 20 MG CAP PO SCH (08:14)
[2020-03-15 10:00] VITALS: BP 122/69
[2020-03-15] MEDS ORDERED: BUDE3CAP PO (12:33)
[2020-03-15] MEDS ORDERED: CIPR-249 PO (12:34)
[2020-03-15] MEDS ORDERED: POTASSIUM CHLORIDE 10 MEQ SR TABLET PO ONE (12:45)
[2020-03-15] MEDS ORDERED: MAGNESIUM GLUCONATE 500 MG TAB PO ONE (14:00)
--- NOTE | 2020-03-15 18:02 | DS.PDOC ---
Discharge Summary General Date of Admission Mar 10, 2020 at 18:14 Date of Discharge 03/15/20 Discharge Summary PROCEDURES PERFORMED DURING STAY: [None]. ADMITTING DIAGNOSES: Sepsis 2/2 UTI acute Ulcerative Colitis NAGMA MELE Hypokalemia Hypomagnesemia Normocytic anemia Chronic HTN DISCHARGE DIAGNOSES: Sepsis 2/2 UTI acute Ulcerative Colitis NAGMA MELE Hypokalemia Hypomagnesemia Normocytic anemia Chronic HTN COMPLICATIONS/CHIEF COMPLAINT: Sepsis. HISTORY OF PRESENT ILLNESS: This is a 64-year-old female who presented with multiple complaints including difficulties walking, feeling "numb all over", cold, having spasm in her legs and difficulties breathing. The symptoms began around lunchtime while she was at work. With more pointed questioning she admitted to having a fever, abdominal pain, increased thirst, pain with urination, and dark-colored urine. She has had diarrhea with 5-6 episodes per day for one month because he couldn't afford her budesonide. Based on CT scan findings of colon edema Samuel Trujillo consulted and ordered Zosyn for possible colitis.. HOSPITAL COURSE: During hospital stay following issue addressed 1. Sepsis 2/2 UTI Resolved after treatment with ciprofloxacin 2. Potential acute Ulcerative Colitis flare in the setting of non-compliance with her budesonide due to cost -5-6 episodes of diarrhea daily for 1 month, now well controlled -Had NAGMA likey 2/2 chronic diarrhea -continue 9mg PO budesonide daily with taper per GI recs -continue cipro that covers both Klebs UTI and empiric GI coverage today, discontinue tomorrow if clinically stable without fevers. With plan for budesonide taper by 3mg every 4 weeks per GI recs. -has an appointment w coming up soon in the outpatient setting. -PFS working on helping with insurance coverage vs. affording her steroids. -luis fernando bryant -consulted GI, appreciate recs 3. MELE vs CKD: resolved. -prerenal due to diarrhea, resolved with hydration -holding lisinopril, will resume if indicated 4. Hypokalemia 2/2 diarrhea, repleted 5. Hypomagnesemia: -Likely same as hypokalemia, replete with 1 g IV this AM 6.Normocytic anemia - f/u iron panel 7. Chronic HTN - continue holding metoprolol, amlodipine and lisinopril while BP is relatively low DISCHARGE MEDICATIONS: Please see below. ALLERGIES: Please see below. PHYSICAL EXAMINATION ON DISCHARGE: VITAL SIGNS: Please see below. GEN: NAD SKIN: No rashes or lesions HEENT: NCAT, PERRLA, EOMI, MMM CVS: RRR, no mrg LUNGS: CTAB ABDOMEN: Normoactive bowel sounds, soft, NTND, no rebound or guarding EXTREMITIES: WWP, no edema NEURO: CN 2-12 are grossly intact, speech is not dysarthric, range of motion intact in all 4 extremities PSYCH: AOx3 LABORATORY DATA: Please see below. IMAGING: REASON FOR EXAM: Abdominal pain. The latest prior for comparison 06/16/2009. CONTRAST: 100 mL Isovue 370. The lung bases are clear. The liver, gallbladder, spleen, pancreas, adrenal glands, and kidneys are within normal limits. The abdominal aorta and para-aortic regions are within normal limits. There is calcific atherosclerotic changes seen involving the abdominal aorta status quo. The intra-abdominal and intrapelvic bowel loops and their mesenteries are essentially unchanged from the prior exam. There is no pericolonic fatty infiltration. The colon is noncontrast opacified limiting evaluation of it. Mild mural edema involving the ascending and transverse colon cannot be completely ruled out. There is no free fluid or free air seen in the abdomen or pelvis. There is no evidence of an intra-abdominal or intrapelvic mass or adenopathy. The osseous structures are stable and intact. IMPRESSION: CT findings are essentially within normal limits with the exception of possible mild mural edema involving the ascending and transverse colon without pericolonic inflammatory change. Since the colon is not opacified with oral or bowel preparatory contrast, evaluation of it is limited. The examination is otherwise unremarkable. PROGNOSIS: Fair ACTIVITY: [As tolerated]. DIET: Cardiac DISPOSITION: 01 Home, Self-Care. DISCHARGE INSTRUCTIONS: Patient is educated to avoid NSAIDs ( including diclofenac) as they can worsen Microscopic colitis F/u with GI and PCP in 3-5 days ITEMS TO FOLLOWUP ON ON OUTPATIENT: Follow-up with PCP and GI DISCHARGE CONDITION: [Stable]. TIME SPENT ON DISCHARGE: Greater than 20 minutes. Vital Signs/I&Os Vital Signs Date Time Temp Pulse Resp B/P (MAP) Pulse Ox O2 Delivery O2 Flow Rate FiO2 03/15/20 10:00 98.4 55 18 122/69 (86) 96 Room Air I&O- Last 24 Hours up to 6 AM 03/15/20 06:00 Intake Total 960 ml Output Total 650 ml Balance 310 ml Laboratory Data Labs 24H Laboratory Tests 2 03/15/20 05:57: Nucleated Red Blood Cells % (auto) 0.0, Anion Gap 6L, Glomerular Filtration Rate > 60.0, Calcium Level 8.2L, Magnesium Level 1.7L CBC/BMP Laboratory Tests 03/15/20 05:57 Microbiology Microbiology 03/15/20 Urine Culture, Received Pending 03/13/20 Blood Culture - Preliminary, Resulted No growth after 24 hours . All specim... 03/13/20 Blood Culture - Preliminary, Resulted No growth after 24 hours . All specim... 03/10/20 Urine Culture - Final, Complete Klebsiella Pneumoniae 03/10/20 Blood Culture - Final, Complete NO GROWTH AFTER 5 DAYS 03/10/20 Gastrointestinal Tract Panel (PCR) - Final, Complete 03/10/20 Blood Culture - Final, Complete NO GROWTH AFTER 5 DAYS Discharge Medications Scheduled Amlodipine Besylate (Amlodipine Besylate) 2.5 Mg Tablet, 2.5 MG PO DAILY, (Reported) Atorvastatin Calcium (Atorvastatin Calcium) 40 Mg Tab, 40 MG PO DAILY, (Reported) Budesonide (Budesonide EC) 3 Mg Capdr...er, 9 MG PO QAM Continue tapering course of budesonide-- 9mg for 4 weeks and then 6 mg and then 3 mg for fpc maintenance course. Calcium Phosphate Trib/Vit D3 (Calcium + Vitamin D3 Gummies) 1 Each Tab.chew, 2 CHEW PO QHS, (Reported) Ciprofloxacin HCl (Cipro) 500 Mg Tablet, 500 MG PO DAILY Gabapentin (Gabapentin) 300 Mg Cap, 300 MG PO TID, (Reported) Lisinopril (Lisinopril) 20 Mg Tablet, 20 MG PO DAILY, (Reported) Metoprolol Succinate (Metoprolol Succinate) 100 Mg Tab.er.24h, 100 MG PO DAILY, (Reported) Multivitamin (Gummi Bear Multivitamin) 1 Each Tab.chew, 2 CHEW PO QHS, (Reported) Omeprazole (Omeprazole) 20 Mg Capsule.dr, 20 MG PO DAILY, (Reported) Sertraline HCl (Sertraline HCl) 100 Mg Tab, 100 MG PO DAILY, (Reported) Allergies Coded Allergies: chlorthalidone (Verified Allergy, Unknown, 03/10/20) CISCO SAMANO DO Mar 15, 2020 18:02
== END 2020-03-15 14:32 | disposition home or self-care (01) | DRG 720 ==
LOC: EDSEX 13:21 → M ED 13:21 → EDBD 13:21 → M ED INP 18:14 → ENRESERV 18:37 → M PCU 20:19 → M MSPAV 03-13 06:15
PROVIDERS: ADMIT Internal Medicine; ATTEND Internal Medicine
DX: A41.9 Sepsis, unspecified organism (principal); N17.9 Acute kidney failure, unspecified; E83.42 Hypomagnesemia; K51.90 Ulcerative colitis, unspecified, without complications; N39.0 Urinary tract infection, site not specified; E87.6 Hypokalemia; I12.9 Hypertensive chronic kidney disease with stage 1 through stage 4 chronic kidney disease, or unspecified chronic kidney disease; D64.9 Anemia, unspecified; Z91.14 Patient's other noncompliance with medication regimen; N18.9 Chronic kidney disease, unspecified; Z79.899 Other long term (current) drug therapy; Z88.8 Allergy status to other drugs, medicaments and biological substances

== ENCOUNTER → 2020-10-10 | Outpatient (CLI) | payer BC ==
[~2020-10-10] MED LIST changes: +AMLO2.5T3 PO; +CIPR-249 PO; +DICL50TAB PO; +DISN1CHW3 PO; +GUMMCHW PO; +LISI-538 PO; +METO1TAB33 PO; +OMEP-218 PO
--- NOTE | 2020-10-10 14:23 | REPMRS ---
Patient History The patient states she has not had a clinical breast exam in over a year. No known family history of cancer. No Hormone Replacement Therapy 3D TOMOSYNTHESIS WAS PERFORMED. [facility] for [facility]%. Volpara breast density b. Digital Woman Screen Mammo: October 10, 2020 - Exam #: [id number] Bilateral CC and MLO view(s) were taken. Technologist: Hien Orozco, Technologist Prior study comparison: April 23, 2019, bilateral digital woman screen mammo performed at [facility]. February 03, 2018, digital woman screen mammo performed at [facility]. FINDINGS: The breast tissue is heterogeneously dense. This may lower the sensitivity of mammography. There has been no change in the appearance of the mammogram from the prior studies. There is a moderate amount of residual fibroglandular tissue which is fairly symmetric. There is no interval development of dominant mass, areas of architectural distortion, or clustered microcalcification typical of malignancy. Assessment: BI-RADS/ACR category 1 mammogram. Negative Mammogram. Recommendation Routine screening mammogram in 1 year (for women over age 40). This mammogram was interpreted with the aid of an FDA-approved computer-aided dectection system. Electronically Signed By: Philippe Hennessy MD 10/10/20 [id number]
== END ==
LOC: M WHC 13:36
PROVIDERS: ATTEND Physician Assistant Medical
DX: Z12.31 Encounter for screening mammogram for malignant neoplasm of breast (principal)

== ENCOUNTER → 2020-11-05 | Outpatient (CLI) | payer SELFPAY ==
[~2020-11-05] MED LIST changes: +GABA-282 PO; -GABA-843 PO; -LISI-538 PO; +LISI10TA22 PO; -LISI10TA4 PO; +LISI20TA33 PO
== END ==
LOC: M LABSMTC 11:32
PROVIDERS: ATTEND Pediatrics
DX: Z20.822 Contact with and (suspected) exposure to COVID-19 (principal)

== ENCOUNTER → 2020-11-16 | Outpatient (CLI) | payer BC ==
[2020-11-16 15:11] LABS: BASO # 0.1 10^3/uL (0.0-0.2); BASO % 0.5 % (0.0-1.0); EOS # 0.1 10^3/uL (0.0-0.5); EOS % 0.5 % (0.0-3.0); HEMATOCRIT 36.2 % (36.0-47.0); HEMOGLOBIN 12.1 g/dl (12.0-15.5); LYMPH # 3.5 10^3/uL (1.5-5.0); LYMPH % 34.1 % (24.0-44.0); MEAN CORPUSCULAR HEMOGLOBIN 30.6 pg (27.0-33.0); MEAN CORPUSCULAR HGB CONC 33.4 g/dl (32.0-36.5); MEAN CORPUSCULAR VOLUME 91.4 fl (80.0-96.0); MONO # 0.7 10^3/uL (0.0-0.8); MONO % 7.1 % (2.0-8.0); NEUTROPHILS # 5.9 10^3/uL (1.5-8.5); NEUTROPHILS % 57.6 % (36.0-66.0); PLATELET COUNT, AUTOMATED 359 10^3/uL (150-450); RED BLOOD COUNT 3.96 10^6/uL (4.00-5.40); WHITE BLOOD COUNT 10.2 10^3/uL (4.0-10.0)
[2020-11-16 15:24] LABS: ALBUMIN 3.7 GM/DL (3.2-5.2); ALT/SGPT 20 U/L (12-78); BILIRUBIN,TOTAL 0.5 MG/DL (0.2-1.0); BLOOD UREA NITROGEN 15 MG/DL (7-18); CALCIUM LEVEL 9.5 MG/DL (8.8-10.2); CARBON DIOXIDE LEVEL 30 MEQ/L (21-32); CHLORIDE LEVEL 103 MEQ/L (98-107); CHOLESTEROL LEVEL 236 MG/DL (<200); CHOLESTEROL RISK RATIO 4.916 (<5); CREATININE FOR GFR 0.96 MG/DL (0.55-1.30); GLOMERULAR FILTRATION RATE > 60.0 (>45); GLUCOSE, FASTING 77 MG/DL (70-100); HDL CHOLESTEROL 48 MG/DL (>40); LDL CHOLESTEROL 142 MG/DL (<100); NON-HDL-C 188 MG/DL; POTASSIUM SERUM 4.2 MEQ/L (3.5-5.1); SODIUM LEVEL 139 MEQ/L (136-145); TOTAL PROTEIN 7.2 GM/DL (6.4-8.2); TRIGLYCERIDES LEVEL 230 MG/DL (<150)
== END ==
LOC: M LAB 14:14
PROVIDERS: ATTEND Family Medicine
DX: I10 Essential (primary) hypertension (principal)

== ENCOUNTER → 2020-11-29 | Outpatient (CLI) | payer BC ==
[2020-11-29 16:56] LABS: BASO # 0.1 10^3/uL (0.0-0.2); BASO % 0.6 % (0.0-1.0); EOS # 0.1 10^3/uL (0.0-0.5); EOS % 0.7 % (0.0-3.0); HEMATOCRIT 36.4 % (36.0-47.0); HEMOGLOBIN 12.3 g/dl (12.0-15.5); LYMPH # 5.1 10^3/uL (1.5-5.0); LYMPH % 43.1 % (24.0-44.0); MEAN CORPUSCULAR HEMOGLOBIN 31.1 pg (27.0-33.0); MEAN CORPUSCULAR HGB CONC 33.8 g/dl (32.0-36.5); MEAN CORPUSCULAR VOLUME 91.9 fl (80.0-96.0); MONO # 0.9 10^3/uL (0.0-0.8); MONO % 7.2 % (2.0-8.0); NEUTROPHILS # 5.7 10^3/uL (1.5-8.5); NEUTROPHILS % 47.9 % (36.0-66.0); PLATELET COUNT, AUTOMATED 357 10^3/uL (150-450); RED BLOOD COUNT 3.96 10^6/uL (4.00-5.40); WHITE BLOOD COUNT 11.9 10^3/uL (4.0-10.0)
[2020-11-29 17:20] LABS: ALBUMIN 3.8 GM/DL (3.2-5.2); ALT/SGPT 24 U/L (12-78); BILIRUBIN,TOTAL 0.1 MG/DL (0.2-1.0); BLOOD UREA NITROGEN 15 MG/DL (7-18); CALCIUM LEVEL 8.9 MG/DL (8.8-10.2); CARBON DIOXIDE LEVEL 43 MEQ/L (21-32); CHLORIDE LEVEL 106 MEQ/L (98-107); CREATININE FOR GFR 0.83 MG/DL (0.55-1.30); GLOMERULAR FILTRATION RATE > 60.0 (>45); GLUCOSE, FASTING 92 MG/DL (70-100); IRON (FE) 47 UG/DL (50-170); PERCENT SATURATION 15.4 % (13.2-45.0); POTASSIUM SERUM 3.9 MEQ/L (3.5-5.1); SODIUM LEVEL 139 MEQ/L (136-145); TOTAL IRON BINDING CAPACITY 305 UG/DL (250-450); TOTAL PROTEIN 6.9 GM/DL (6.4-8.2)
[2020-11-29 17:28] LABS: VITAMIN B12 LEVEL 506 PG/ML
[2020-11-29 17:29] LABS: FOLATE 11.2 NG/ML
== END ==
LOC: M LAB 16:07
PROVIDERS: ATTEND Internal Medicine Gastroenterology
DX: D64.9 Anemia, unspecified (principal)

== ENCOUNTER → 2020-12-12 | Outpatient (CLI) | payer BC ==
--- NOTE | 2020-12-12 17:23 | REPVR ---
PROCEDURE INFORMATION: Exam: MR Cervical Spine Without Contrast Exam date and time: 12/12/2020 3:36 PM Age: 65 years old Clinical indication: Radiculopathy; Cervical region TECHNIQUE: Imaging protocol: Multiplanar magnetic resonance images of the cervical spine without contrast. COMPARISON: No relevant prior studies available. FINDINGS: Vertebrae: No acute fracture is identified. Alignment is anatomic. Spinal cord: The cervical cord is of normal signal intensity and size. C2-C3: There is moderate left facet arthropathy. This is causing minimal left neural foraminal narrowing. There is no spinal canal or right foraminal stenosis. C3-C4: There is moderate left uncinate spurring, mild left facet arthropathy, and moderate right facet arthropathy. There is no spinal canal stenosis. C4-C5: There is a tiny central disc protrusion and moderate facet arthropathy. There is no significant spinal canal or neural foraminal stenosis. C5-C6: There is a shallow broad-based posterior disc osteophyte complex, mild uncinate spurring, and mild facet arthropathy. There is no significant spinal canal or neural foraminal stenosis. C6-C7: Mild facet arthropathy is present. There is no significant spinal canal or neural foraminal stenosis. C7-T1: There is moderate left facet arthropathy. There is no significant spinal canal or neural foraminal stenosis. Soft tissues: The prevertebral soft tissues are within normal limits. Vertebral arteries: Expected flow voids in the vertebral arteries. IMPRESSION: Mild degenerative changes of the cervical spine as discussed above Electronically signed by: Bronson Leonard On 12/12/2020 17:23:03 PM
== END ==
LOC: M RAD 14:27
PROVIDERS: ATTEND Pain Medicine Interventional Pain Medicine
DX: M54.12 Radiculopathy, cervical region (principal)

== ENCOUNTER → 2020-12-30 | Outpatient (CLI) | payer BC ==
--- NOTE | 2020-12-30 17:23 | ECGEPIP ---
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 Order Number: [id number] Reading MD: Samuel Hyman Measurements Intervals Ramsey Rate: 60 P: 59 KS: 184 QRS: -5 QRSD: 84 T: 39 QT: 452 QTc: 452 Interpretive Statements Normal sinus rhythm Electronically Signed on 12-30-2020 17:22:52 EDT by Samuel Hyman
== END ==
LOC: M EKG 16:17
PROVIDERS: ATTEND Nurse Practitioner Family
DX: I10 Essential (primary) hypertension (principal)

== ENCOUNTER → 2021-07-08 | Outpatient (REF) | payer BC ==
[~2021-07-08] MED LIST changes: +OMEP40CA4 PO; -OMEP40CA97 PO
[2021-07-08 15:17] LABS: APPEARANCE, URINE CLEAR (CLEAR); BACTERIA, URINE AUTO NEGATIVE (NEGATIVE); BILIRUBIN, URINE AUTO NEGATIVE (NEGATIVE); BLOOD, URINE BLOOD NEGATIVE (NEGATIVE); COLOR, URINE STRAW (YELLOW); GLUCOSE, URINE (UA) AUTO NEGATIVE (NEGATIVE); KETONE, URINE AUTO NEGATIVE (NEGATIVE); LEUKOCYTE ESTERASE, URINE AUTO NEGATIVE (NEGATIVE); NITRITE, URINE AUTO NEGATIVE (NEGATIVE); PROTEIN, URINE AUTO NEGATIVE (NEGATIVE); RBC, URINE AUTO 0 /HPF (0-3); SPECIFIC GRAVITY URINE AUTO 1.003 (1.002-1.035); SQUAMOUS EPITHELIAL CELL UR AU 0 /HPF (0-6); UROBILINOGEN, URINE AUTO 0.2 mg/dL (0.0-2.0); WBC, URINE AUTO 0 /HPF (0-3)
== END ==
LOC: M LAB REF 14:49
PROVIDERS: ATTEND Physician Assistant
DX: N39.0 Urinary tract infection, site not specified (principal)

== ENCOUNTER 2021-11-11 17:39 | Emergency (ER) | payer BC, OTHER ==
[~2021-11-11 17:39] MED LIST changes: -CYMB60CA3 PO; +CYMB60CA4 PO; +OMEP-173 PO; -OMEP-218 PO
[2021-11-11] MEDS ORDERED: calcium/mag/zinc PO (18:06)
[2021-11-11] MEDS ORDERED: MULT-90 PO (18:06)
[2021-11-11] MEDS ORDERED: IBUP80TA PO (18:09)
[2021-11-11] MEDS ORDERED: KETOROLAC 30 MG/ML 1ML VIAL IM ONE (18:25)
[2021-11-11] MEDS ORDERED: CYCLOBENZAPRINE 5MG TABLET PO ONE (18:25)
[2021-11-11] MEDS ORDERED: LIDOCAINE 5% (LIDODERM) PATCH TD ONE (18:25)
[2021-11-11] MEDS ORDERED: MORPHINE 4 MG/ML 1ML VIAL/SYRINGE (J2270) IV ONE (20:00)
[2021-11-11 20:47] LABS: BASO % 0.4 % (0.0-1.0); EOS # 0.1 10^3/uL (0.0-0.5); EOS % 0.5 % (0.0-3.0); HEMOGLOBIN 10.8 g/dl (12.0-15.5); LYMPH # 2.1 10^3/uL (1.5-5.0); LYMPH % 18.4 % (24.0-44.0); MEAN CORPUSCULAR HEMOGLOBIN 30.5 pg (27.0-33.0); MEAN CORPUSCULAR HGB CONC 32.7 g/dl (32.0-36.5); MEAN CORPUSCULAR VOLUME 93.2 fl (80.0-96.0); MONO # 0.6 10^3/uL (0.0-0.8); MONO % 5.7 % (2.0-8.0); NEUTROPHILS # 8.4 10^3/uL (1.5-8.5); NEUTROPHILS % 74.6 % (36.0-66.0); PLATELET COUNT, AUTOMATED 344 10^3/uL (150-450); RED BLOOD COUNT 3.54 10^6/uL (4.00-5.40); WHITE BLOOD COUNT 11.2 10^3/uL (4.0-10.0)
[2021-11-11] MEDS ORDERED: NS 1,000 ML IV ONE (21:00)
[2021-11-11] MEDS ORDERED: **NOTE PATIENT COMMENT** MISC XX SCH (21:00)
[2021-11-11 21:15] LABS: CALCIUM LEVEL 8.7 MG/DL (8.8-10.2); CREATININE FOR GFR 1.2 MG/DL (0.55-1.30); POTASSIUM SERUM 3.9 MEQ/L (3.5-5.1)
[2021-11-11 21:29] LABS: APPEARANCE, URINE CLEAR (CLEAR); BACTERIA, URINE AUTO NEGATIVE (NEGATIVE); BILIRUBIN, URINE AUTO NEGATIVE (NEGATIVE); BLOOD, URINE BLOOD NEGATIVE (NEGATIVE); COLOR, URINE YELLOW (YELLOW); GLUCOSE, URINE (UA) AUTO NEGATIVE (NEGATIVE); KETONE, URINE AUTO NEGATIVE (NEGATIVE); LEUKOCYTE ESTERASE, URINE AUTO NEGATIVE (NEGATIVE); MUCUS, URINE SMALL (NEGATIVE); NITRITE, URINE AUTO NEGATIVE (NEGATIVE); PROTEIN, URINE AUTO NEGATIVE (NEGATIVE); RBC, URINE AUTO 1 /HPF (0-3); SQUAMOUS EPITHELIAL CELL UR AU 1 /HPF (0-6); UROBILINOGEN, URINE AUTO 0.2 mg/dL (0.0-2.0); WBC, URINE AUTO 4 /HPF (0-3)
[2021-11-11] MEDS ORDERED: METH-1164 PO (22:29)
[2021-11-11] MEDS ORDERED: KETO10TAB PO (22:29)
[2021-11-11 22:36] VITALS: BP 161/76
== END 2021-11-11 22:44 | disposition home or self-care (01) ==
LOC: M ED 17:39
DX: S39.012A Strain of muscle, fascia and tendon of lower back, initial encounter (principal); M62.830 Muscle spasm of back; X58.XXXA Exposure to other specified factors, initial encounter; Y92.9 Unspecified place or not applicable; Y93.9 Activity, unspecified; Y99.9 Unspecified external cause status; M43.16 Spondylolisthesis, lumbar region; M51.27 Other intervertebral disc displacement, lumbosacral region; M41.86 Other forms of scoliosis, lumbar region; I70.0 Atherosclerosis of aorta; I70.8 Atherosclerosis of other arteries; I10 Essential (primary) hypertension; M19.90 Unspecified osteoarthritis, unspecified site; Z79.899 Other long term (current) drug therapy
CPT/HCPCS: 72131; 74176; 80048; 81001; 85025; 96361; 96372; 96374; 99284; J1885; J2270

== ENCOUNTER → 2021-11-28 | Outpatient (CLI) | payer OTHER ==
[~2021-11-28] MED LIST changes: +IBUP80TA PO; +KETO10TAB PO; +METH-1164 PO; +MULT-90 PO; +calcium/mag/zinc PO
[2021-11-28 12:36] LABS: BASO # 0.1 10^3/uL (0.0-0.2); BASO % 0.7 % (0.0-1.0); EOS # 0.1 10^3/uL (0.0-0.5); EOS % 1.3 % (0.0-3.0); HEMATOCRIT 35.8 % (36.0-47.0); HEMOGLOBIN 11.7 g/dl (12.0-15.5); LYMPH # 3.5 10^3/uL (1.5-5.0); LYMPH % 36.2 % (24.0-44.0); MEAN CORPUSCULAR HEMOGLOBIN 30.2 pg (27.0-33.0); MEAN CORPUSCULAR HGB CONC 32.7 g/dl (32.0-36.5); MEAN CORPUSCULAR VOLUME 92.5 fl (80.0-96.0); MONO # 0.6 10^3/uL (0.0-0.8); MONO % 6.6 % (2.0-8.0); NEUTROPHILS # 5.3 10^3/uL (1.5-8.5); PLATELET COUNT, AUTOMATED 389 10^3/uL (150-450); RED BLOOD COUNT 3.87 10^6/uL (4.00-5.40); WHITE BLOOD COUNT 9.6 10^3/uL (4.0-10.0)
[2021-11-28 13:50] LABS: ALBUMIN 3.5 GM/DL (3.2-5.2); ALT/SGPT 27 U/L (12-78); BILIRUBIN,DIRECT < 0.1 MG/DL (0.0-0.2); BILIRUBIN,TOTAL 0.3 MG/DL (0.2-1.0); BLOOD UREA NITROGEN 11 MG/DL (7-18); CALCIUM LEVEL 9.5 MG/DL (8.8-10.2); CARBON DIOXIDE LEVEL 29 MEQ/L (21-32); CHLORIDE LEVEL 103 MEQ/L (98-107); CREATININE FOR GFR 0.91 MG/DL (0.55-1.30); GLOMERULAR FILTRATION RATE > 60.0 (>45); GLUCOSE, FASTING 123 MG/DL (70-100); POTASSIUM SERUM 4.2 MEQ/L (3.5-5.1); SODIUM LEVEL 137 MEQ/L (136-145); TOTAL PROTEIN 6.8 GM/DL (6.4-8.2)
[2021-11-28 14:09] LABS: TOTAL 25(OH) VITAMIN D 24.5 NG/ML (30.0-100.0)
== END ==
LOC: M LAB 12:02
PROVIDERS: ATTEND Family Medicine
DX: I10 Essential (primary) hypertension (principal)

== ENCOUNTER → 2021-12-21 | Outpatient (CLI) | payer OTHER | LOC: M RAD 14:07 | PROVIDERS: ATTEND Family Medicine | DX: Z12.2 Encounter for screening for malignant neoplasm of respiratory organs (principal); F17.210 Nicotine dependence, cigarettes, uncomplicated; J47.9 Bronchiectasis, uncomplicated; R91.8 Other nonspecific abnormal finding of lung field; J84.9 Interstitial pulmonary disease, unspecified ==

== ENCOUNTER → 2022-02-05 | Outpatient (CLI) | payer OTHER ==
[~2022-02-05] MED LIST changes: +TIZA10TA
== END ==
LOC: M LABSMTC 10:36
PROVIDERS: ATTEND Anesthesiology
DX: Z01.812 Encounter for preprocedural laboratory examination (principal); Z20.822 Contact with and (suspected) exposure to COVID-19

== ENCOUNTER → 2022-02-08 | Outpatient (CLI) | payer OTHER | LOC: M PLAIMG 13:24 | PROVIDERS: ATTEND Physician Assistant | DX: M51.16 Intervertebral disc disorders with radiculopathy, lumbar region (principal) ==

== ENCOUNTER 2022-02-09 11:23 | Day surgery (SDC) | payer OTHER ==
[~2022-02-09] VITALS: Ht 152.4 cm; Wt 62.1 kg
[~2022-02-09 11:23] MED LIST changes: +NS 1,000 ML IV ONE
[2022-02-09] MEDS ORDERED: fentaNYL 100 MCG/2 ML INJECTION As Ordered ONE (12:32)
[2022-02-09] MEDS ORDERED: propofoL 500 MG/50 ML VIAL As Ordered ONE (12:32)
[2022-02-09] MEDS ORDERED: LIDOCAINE 2% 100MG/5ML SDV (FOR ANES.) As Ordered ONE (12:32)
[2022-02-09] MEDS ORDERED: SIMETHICONE 40MG/0.6ML DROPS 30ML As Ordered ONE (13:52)
[2022-02-09 14:35] VITALS: BP 105/55
== END 2022-02-09 14:55 | disposition home or self-care (01) ==
LOC: M OPP 11:23
PROVIDERS: ATTEND Internal Medicine Gastroenterology
DX: K63.5 Polyp of colon (principal); Z87.19 Personal history of other diseases of the digestive system; Q43.8 Other specified congenital malformations of intestine; Z86.010 Personal history of colon polyps; R12 Heartburn; Z79.02 Long term (current) use of antithrombotics/antiplatelets; Z79.899 Other long term (current) drug therapy; Z88.8 Allergy status to other drugs, medicaments and biological substances
CPT/HCPCS: 43235; 45380; 45385; 88305; J3010

== ENCOUNTER → 2022-03-02 | Outpatient (CLI) | payer OTHER ==
[~2022-03-02] MED LIST changes: -NS 1,000 ML IV ONE
[2022-03-02 19:02] LABS: HEMOGLOBIN A1c 5.9 %
== END ==
LOC: M LAB 15:21
PROVIDERS: ATTEND Family Medicine
DX: R73.03 Prediabetes (principal)

== ENCOUNTER → 2022-03-02 | Outpatient (CLI) | payer OTHER | LOC: M WHC 13:52 | PROVIDERS: ATTEND Family Medicine | DX: Z12.31 Encounter for screening mammogram for malignant neoplasm of breast (principal); Z13.820 Encounter for screening for osteoporosis; R73.03 Prediabetes; M85.851 Other specified disorders of bone density and structure, right thigh; M85.852 Other specified disorders of bone density and structure, left thigh ==

== ENCOUNTER → 2022-04-03 | Outpatient (CLI) | payer OTHER ==
[2022-04-03 12:31] LABS: PLATELET COUNT, AUTOMATED 341 10^3/uL (150-450)
[2022-04-03 12:48] LABS: INR 0.9; PROTHROMBIN TIME 12.5 SECONDS (12.7-14.5)
[2022-04-03 12:49] LABS: PARTIAL THROMBOPLASTIN TIME 27.9 SECONDS (25.9-37.0)
== END ==
LOC: M LAB 11:56
PROVIDERS: ATTEND Physical Medicine & Rehabilitation
DX: M51.16 Intervertebral disc disorders with radiculopathy, lumbar region (principal); M48.061 Spinal stenosis, lumbar region without neurogenic claudication

== ENCOUNTER → 2022-04-24 | Outpatient (CLI) | payer OTHER ==
[2022-04-24 11:26] LABS: CREATININE FOR GFR 1.03 MG/DL (0.55-1.30); GLOMERULAR FILTRATION RATE 57.3 (>45)
== END ==
LOC: M LAB 09:21
PROVIDERS: ATTEND Physician Assistant
DX: M51.16 Intervertebral disc disorders with radiculopathy, lumbar region (principal); M48.061 Spinal stenosis, lumbar region without neurogenic claudication; S39.012D Strain of muscle, fascia and tendon of lower back, subsequent encounter

== ENCOUNTER → 2022-04-27 | Outpatient (CLI) | payer OTHER | LOC: M PLARAD 15:00 | PROVIDERS: ATTEND Physician Assistant | DX: M51.16 Intervertebral disc disorders with radiculopathy, lumbar region (principal); M47.816 Spondylosis without myelopathy or radiculopathy, lumbar region; M25.78 Osteophyte, vertebrae ==

== ENCOUNTER → 2022-06-05 | Outpatient (CLI) | payer OTHER ==
[2022-06-05 19:14] LABS: HEMOGLOBIN A1c 5.8 %
== END ==
LOC: M LAB 16:24
PROVIDERS: ATTEND Nurse Practitioner Family
DX: R73.03 Prediabetes (principal)

== ENCOUNTER → 2022-06-13 | Outpatient (REF) | payer OTHER ==
[2022-06-13 18:29] LABS: BASO # 0.1 10^3/uL (0.0-0.2); BASO % 0.8 % (0.0-1.0); EOS # 0.2 10^3/uL (0.0-0.5); EOS % 1.4 % (0.0-3.0); HEMATOCRIT 38.6 % (36.0-47.0); HEMOGLOBIN 12.8 g/dl (12.0-15.5); LYMPH % 32.9 % (24.0-44.0); MEAN CORPUSCULAR HEMOGLOBIN 30.3 pg (27.0-33.0); MEAN CORPUSCULAR HGB CONC 33.2 g/dl (32.0-36.5); MEAN CORPUSCULAR VOLUME 91.5 fl (80.0-96.0); MONO % 8.1 % (2.0-8.0); NEUTROPHILS # 6.9 10^3/uL (1.5-8.5); NEUTROPHILS % 56.5 % (36.0-66.0); PLATELET COUNT, AUTOMATED 357 10^3/uL (150-450); RED BLOOD COUNT 4.22 10^6/uL (4.00-5.40); WHITE BLOOD COUNT 12.2 10^3/uL (4.0-10.0)
[2022-06-13 18:47] LABS: C REACTIVE PROTEIN QUANTITATIV < 0.30 MG/DL (0.00-0.30); RHEUMATOID FACTOR QUANT < 10.0 IU/ML (<15.0); TOTAL PROTEIN 7.2 GM/DL (6.4-8.2)
[2022-06-13 20:34] LABS: ERYTHROCYTE SEDIMENTATION RATE 28 mm/hr (0-30)
== END ==
LOC: M PLALAB 17:04
PROVIDERS: ATTEND Orthopaedic Surgery
DX: M50.30 Other cervical disc degeneration, unspecified cervical region (principal)

== ENCOUNTER → 2022-08-13 | Outpatient (CLI) | payer OTHER | LOC: M LAB 07-16 10:00 | PROVIDERS: ATTEND Internal Medicine Gastroenterology | DX: R19.7 Diarrhea, unspecified (principal) ==

== ENCOUNTER → 2022-12-10 | Outpatient (CLI) | payer OTHER ==
[2022-12-10 15:06] LABS: BASO # 0.1 10^3/uL (0.0-0.2); EOS # 0.3 10^3/uL (0.0-0.5); EOS % 2.8 % (0.0-3.0); HEMATOCRIT 39.1 % (36.0-47.0); HEMOGLOBIN 13.3 g/dl (12.0-15.5); LYMPH % 42.5 % (24.0-44.0); MEAN CORPUSCULAR HEMOGLOBIN 31.5 pg (27.0-33.0); MEAN CORPUSCULAR VOLUME 92.7 fl (80.0-96.0); MONO # 0.7 10^3/uL (0.0-0.8); MONO % 7.2 % (2.0-8.0); NEUTROPHILS # 4.4 10^3/uL (1.5-8.5); NEUTROPHILS % 46.3 % (36.0-66.0); PLATELET COUNT, AUTOMATED 321 10^3/uL (150-450); RED BLOOD COUNT 4.22 10^6/uL (4.00-5.40); WHITE BLOOD COUNT 9.4 10^3/uL (4.0-10.0)
[2022-12-10 15:30] LABS: ALBUMIN 3.8 G/DL (3.2-5.2); ALKALINE PHOSPHATASE 103 U/L (46-116); ALT/SGPT 21 U/L (7.0-40); AST/SGOT 20 U/L (<34); BILIRUBIN,TOTAL 0.5 MG/DL (0.3-1.2); BLOOD UREA NITROGEN 13 MG/DL (9-23); CALCIUM LEVEL 9.6 MG/DL (8.3-10.6); CARBON DIOXIDE LEVEL 28 MMOL/L (20-31); CHLORIDE LEVEL 101 MMOL/L (98-107); CHOLESTEROL LEVEL 234 MG/DL (<200); CHOLESTEROL RISK RATIO 6.03 (<5); CREATININE FOR GFR 0.91 MG/DL (0.55-1.30); GLOMERULAR FILTRATION RATE > 60.0 (>45); GLUCOSE, FASTING 97 MG/DL (74-106); HDL CHOLESTEROL 38.8 MG/DL (>40); LDL CHOLESTEROL 115.4 MG/DL (<100); NON-HDL-C 195.2 MG/DL; POTASSIUM SERUM 4.5 MMOL/L (3.5-5.1); SODIUM LEVEL 136 MMOL/L (136-145); TOTAL PROTEIN 7.2 G/DL (5.7-8.2); TRIGLYCERIDES LEVEL 399 MG/DL (<150)
[2022-12-10 15:55] LABS: HEMOGLOBIN A1c 5.7 % (4.0-6.0)
== END ==
LOC: M LAB 14:04
PROVIDERS: ATTEND Nurse Practitioner Family
DX: I10 Essential (primary) hypertension (principal)

== ENCOUNTER → 2023-01-22 | Outpatient (CLI) | payer OTHER | LOC: M RAD 13:25 | PROVIDERS: ATTEND Family Medicine | DX: F17.210 Nicotine dependence, cigarettes, uncomplicated (principal) ==

== ENCOUNTER → 2023-07-26 | Outpatient (CLI) | payer OTHER ==
[2023-07-26 12:32] LABS: CHOLESTEROL LEVEL 217 MG/DL (<200); CHOLESTEROL RISK RATIO 6.27 (<5); HDL CHOLESTEROL 34.6 MG/DL (>40); NON-HDL-C 182.4 MG/DL; TRIGLYCERIDES LEVEL 446 MG/DL (<150)
== END ==
LOC: M LAB 11:46
PROVIDERS: ATTEND Registered Nurse
DX: E78.2 Mixed hyperlipidemia (principal)

== ENCOUNTER → 2023-08-13 | Outpatient (CLI) | payer OTHER ==
[~2023-08-13] MED LIST changes: +AMLO1TAB24 PO; +ATOR80TA59 PO; +DICY20TA20 PO; +FAMO1TAB11 PO; +FLUT50SP17; +ZOLO100T PO
== END ==
LOC: M WHC 15:14
PROVIDERS: ATTEND Registered Nurse
DX: Z12.31 Encounter for screening mammogram for malignant neoplasm of breast (principal)

== ENCOUNTER 2023-08-20 09:09 | Day surgery (SDC) | payer OTHER ==
[~2023-08-20] VITALS: Ht 152.4 cm; Wt 56.2 kg
[~2023-08-20 09:09] MED LIST changes: +NS 1,000 ML IV ONE
[2023-08-20] MEDS ORDERED: propofoL 200 MG/20 ML VIAL As Ordered ONE ×2 (09:55→09:56)
[2023-08-20] MEDS ORDERED: LIDOCAINE 2% 100MG/5ML SDV (FOR ANES.) As Ordered ONE (09:57)
[2023-08-20] MEDS ORDERED: GLYCOPYRROLATE INJ 0.2 MG/ML 2 ML VIAL As Ordered ONE (10:30)
[2023-08-20 11:14] VITALS: TEMP 97
[2023-08-20 11:32] VITALS: BP 133/57; O2SAT 97
== END 2023-08-20 11:36 | disposition home or self-care (01) ==
LOC: M OPP 09:09
PROVIDERS: ATTEND Internal Medicine Gastroenterology
DX: D12.5 Benign neoplasm of sigmoid colon (principal); K52.839 Microscopic colitis, unspecified; R19.7 Diarrhea, unspecified; Z80.0 Family history of malignant neoplasm of digestive organs; I10 Essential (primary) hypertension; E78.5 Hyperlipidemia, unspecified; F41.8 Other specified anxiety disorders; F17.210 Nicotine dependence, cigarettes, uncomplicated; Z88.8 Allergy status to other drugs, medicaments and biological substances; Z79.899 Other long term (current) drug therapy

== ENCOUNTER → 2024-01-23 | Outpatient (CLI) | payer OTHER ==
[~2024-01-23] MED LIST changes: -FLUT50SP17; +FLUTISP; -NS 1,000 ML IV ONE
[2024-01-23 10:49] LABS: BASO # 0.1 10^3/uL (0.0-0.2); BASO % 0.9 % (0.0-1.0); EOS # 0.2 10^3/uL (0.0-0.5); EOS % 2.8 % (0.0-3.0); HEMATOCRIT 37.4 % (36.0-47.0); HEMOGLOBIN 12.6 g/dl (12.0-15.5); LYMPH # 3.1 10^3/uL (1.5-5.0); MEAN CORPUSCULAR HGB CONC 33.7 g/dl (32.0-36.5); MEAN CORPUSCULAR VOLUME 91.9 fl (80.0-96.0); MONO # 0.6 10^3/uL (0.0-0.8); MONO % 7.5 % (2.0-8.0); NEUTROPHILS # 4.4 10^3/uL (1.5-8.5); NEUTROPHILS % 51.6 % (36.0-66.0); PLATELET COUNT, AUTOMATED 396 10^3/uL (150-450); RED BLOOD COUNT 4.07 10^6/uL (4.00-5.40); WHITE BLOOD COUNT 8.5 10^3/uL (4.0-10.0)
[2024-01-23 11:15] LABS: HEMOGLOBIN A1c 5.2 % (4.0-6.0)
[2024-01-23 11:16] LABS: ALBUMIN 3.4 G/DL (3.2-5.2); ALKALINE PHOSPHATASE 137 U/L (46-116); ALT/SGPT 12 U/L (7.0-40); AST/SGOT 17 U/L (<34); BILIRUBIN,TOTAL 0.4 MG/DL (0.3-1.2); BLOOD UREA NITROGEN 15 MG/DL (9-23); CALCIUM LEVEL 9.4 MG/DL (8.3-10.6); CARBON DIOXIDE LEVEL 30 MMOL/L (20-31); CHLORIDE LEVEL 104 MMOL/L (98-107); CHOLESTEROL LEVEL 181 MG/DL (<200); CREATININE FOR GFR 0.81 MG/DL (0.55-1.30); GLOMERULAR FILTRATION RATE > 60.0 (>45); GLUCOSE, FASTING 94 MG/DL (74-106); HDL CHOLESTEROL 33.5 MG/DL (>40); LDL CHOLESTEROL 100.5 MG/DL (<100); NON-HDL-C 147.5 MG/DL; POTASSIUM SERUM 4.6 MMOL/L (3.5-5.1); SODIUM LEVEL 139 MMOL/L (136-145); TOTAL PROTEIN 6.8 G/DL (5.7-8.2); TRIGLYCERIDES LEVEL 235 MG/DL (<150)
== END ==
LOC: M RAD 09:26
PROVIDERS: ATTEND Registered Nurse
DX: Z12.2 Encounter for screening for malignant neoplasm of respiratory organs (principal); F17.210 Nicotine dependence, cigarettes, uncomplicated; J47.9 Bronchiectasis, uncomplicated; I70.0 Atherosclerosis of aorta; M85.89 Other specified disorders of bone density and structure, multiple sites; R73.03 Prediabetes; E78.2 Mixed hyperlipidemia; I10 Essential (primary) hypertension

== ENCOUNTER → 2024-01-27 | Outpatient (CLI) | payer BC, OTHER | LOC: M PAIN 08:00 | PROVIDERS: ATTEND Nurse Practitioner Family | DX: M51.16 Intervertebral disc disorders with radiculopathy, lumbar region (principal); G89.29 Other chronic pain; Z79.899 Other long term (current) drug therapy; Z88.8 Allergy status to other drugs, medicaments and biological substances ==

== ENCOUNTER → 2024-02-10 | Outpatient (CLI) | payer OTHER | LOC: M PLAIMG 09:34 | PROVIDERS: ATTEND Nurse Practitioner Family | DX: M51.16 Intervertebral disc disorders with radiculopathy, lumbar region (principal); M51.46 Schmorl's nodes, lumbar region ==

== ENCOUNTER → 2024-02-18 | Outpatient (CLI) | payer OTHER | LOC: M PAIN 17:30 | PROVIDERS: ATTEND Nurse Practitioner Family | DX: M79.18 Myalgia, other site (principal); G89.29 Other chronic pain; Z79.899 Other long term (current) drug therapy; F17.200 Nicotine dependence, unspecified, uncomplicated; Z88.8 Allergy status to other drugs, medicaments and biological substances ==

== ENCOUNTER → 2024-03-03 | Outpatient (CLI) | payer OTHER | LOC: M WHC 13:01 | PROVIDERS: ATTEND Registered Nurse | DX: Z13.820 Encounter for screening for osteoporosis (principal); M85.89 Other specified disorders of bone density and structure, multiple sites ==

== ENCOUNTER → 2024-05-19 | Outpatient (CLI) | payer OTHER ==
[~2024-05-19] MED LIST changes: +TRIAMCINOLONE ACETONIDE SUSP 40MG/ML 1ML VIAL As Ordered ONE; +diazePAM 5MG TABLET As Ordered ONE; +oxyCODONE 5MG TAB As Ordered ONE
== END ==
LOC: M PAIN 16:00
PROVIDERS: ATTEND Anesthesiology
DX: M79.18 Myalgia, other site (principal); G89.29 Other chronic pain; F17.200 Nicotine dependence, unspecified, uncomplicated; Z79.899 Other long term (current) drug therapy
CPT/HCPCS: 20552; J0665; J3301

== ENCOUNTER → 2024-06-19 | Outpatient (CLI) | payer OTHER ==
[~2024-06-19] MED LIST changes: +GABA-1172 PO; -GABA-282 PO; -TRIAMCINOLONE ACETONIDE SUSP 40MG/ML 1ML VIAL As Ordered ONE; -diazePAM 5MG TABLET As Ordered ONE; -oxyCODONE 5MG TAB As Ordered ONE
== END ==
LOC: M PAIN 15:30
PROVIDERS: ATTEND Nurse Practitioner Family
DX: G89.29 Other chronic pain (principal); M46.00 Spinal enthesopathy, site unspecified; M79.10 Myalgia, unspecified site; M54.50 Low back pain, unspecified; F41.9 Anxiety disorder, unspecified; I10 Essential (primary) hypertension; Z79.899 Other long term (current) drug therapy; F17.200 Nicotine dependence, unspecified, uncomplicated

== ENCOUNTER → 2024-07-16 | Outpatient (CLI) | payer OTHER ==
[~2024-07-16] MED LIST changes: +ISOVUE-M 300 61% 15ML VIAL As Ordered ONE; +LIDOCAINE 1% SDV 30ML VIAL As Ordered ONE; +TRIAMCINOLONE ACETONIDE SUSP 40MG/ML 1ML VIAL As Ordered ONE; +diazePAM 5MG TABLET As Ordered ONE; +oxyCODONE 5MG TAB As Ordered ONE
== END ==
LOC: M PAIN 14:00
PROVIDERS: ATTEND Anesthesiology
DX: M46.06 Spinal enthesopathy, lumbar region (principal); G89.29 Other chronic pain; M54.50 Low back pain, unspecified; I10 Essential (primary) hypertension; F41.9 Anxiety disorder, unspecified; F17.200 Nicotine dependence, unspecified, uncomplicated; Z88.8 Allergy status to other drugs, medicaments and biological substances; Z79.899 Other long term (current) drug therapy
CPT/HCPCS: 20550; 77002; J0665; J3301; Q9967

== ENCOUNTER → 2024-08-21 | Outpatient (CLI) | payer OTHER ==
[~2024-08-21] MED LIST changes: -ISOVUE-M 300 61% 15ML VIAL As Ordered ONE; -LIDOCAINE 1% SDV 30ML VIAL As Ordered ONE; -TRIAMCINOLONE ACETONIDE SUSP 40MG/ML 1ML VIAL As Ordered ONE; -diazePAM 5MG TABLET As Ordered ONE; -oxyCODONE 5MG TAB As Ordered ONE
== END ==
LOC: M PAIN 14:45
PROVIDERS: ATTEND Nurse Practitioner Family
DX: M46.06 Spinal enthesopathy, lumbar region (principal); G89.29 Other chronic pain; I10 Essential (primary) hypertension; M54.50 Low back pain, unspecified; F41.9 Anxiety disorder, unspecified; F17.200 Nicotine dependence, unspecified, uncomplicated; Z79.899 Other long term (current) drug therapy; Z88.8 Allergy status to other drugs, medicaments and biological substances

== ENCOUNTER → 2024-09-03 | Outpatient (CLI) | payer OTHER | LOC: M WHC 13:29 | PROVIDERS: ATTEND Family Medicine | DX: Z12.31 Encounter for screening mammogram for malignant neoplasm of breast (principal); R92.323 Mammographic fibroglandular density, bilateral breasts ==

== ENCOUNTER → 2024-10-22 | Outpatient (CLI) | payer OTHER | LOC: M PAIN 15:00 | PROVIDERS: ATTEND Nurse Practitioner Family | DX: M46.06 Spinal enthesopathy, lumbar region (principal); I10 Essential (primary) hypertension; Z79.899 Other long term (current) drug therapy; Z88.8 Allergy status to other drugs, medicaments and biological substances ==

== ENCOUNTER → 2024-12-21 | Outpatient (CLI) | payer OTHER ==
[2024-12-21 15:09] LABS: BASO # 0.1 10^3/uL (0.0-0.2); BASO % 1.3 % (0.0-1.0); EOS # 0.2 10^3/uL (0.0-0.5); EOS % 2.2 % (0.0-3.0); HEMATOCRIT 38.5 % (36.0-47.0); LYMPH # 4.3 10^3/uL (1.5-5.0); LYMPH % 46.5 % (24.0-44.0); MEAN CORPUSCULAR HEMOGLOBIN 31.3 pg (27.0-33.0); MEAN CORPUSCULAR HGB CONC 33.8 g/dl (32.0-36.5); MEAN CORPUSCULAR VOLUME 92.8 fl (80.0-96.0); MONO # 0.6 10^3/uL (0.0-0.8); MONO % 6.5 % (2.0-8.0); NEUTROPHILS % 43.3 % (36.0-66.0); PLATELET COUNT, AUTOMATED 358 10^3/uL (150-450); RED BLOOD COUNT 4.15 10^6/uL (4.00-5.40); WHITE BLOOD COUNT 9.2 10^3/uL (4.0-10.0)
[2024-12-21 15:29] LABS: ALBUMIN 3.6 G/DL (3.2-5.2); ALKALINE PHOSPHATASE 84 U/L (35-104); ALT/SGPT 22 U/L (7.0-40); AST/SGOT 18 U/L (<34); BILIRUBIN,TOTAL 0.4 MG/DL (0.3-1.2); BLOOD UREA NITROGEN 10 MG/DL (9-23); CALCIUM LEVEL 9.4 MG/DL (8.3-10.6); CARBON DIOXIDE LEVEL 28 MMOL/L (20-31); CHLORIDE LEVEL 104 MMOL/L (98-107); CHOLESTEROL LEVEL 200 MG/DL (<200); CHOLESTEROL RISK RATIO 5.64 (<5); CREATININE FOR GFR 0.83 MG/DL (0.55-1.30); GLOMERULAR FILTRATION RATE > 60.0 (>45); GLUCOSE, FASTING 93 MG/DL (74-106); HDL CHOLESTEROL 35.4 MG/DL (>40); LDL CHOLESTEROL 102.4 MG/DL (<100); NON-HDL-C 164.6 MG/DL; POTASSIUM SERUM 4.3 MMOL/L (3.5-5.1); SODIUM LEVEL 137 MMOL/L (136-145); TRIGLYCERIDES LEVEL 311 MG/DL (<150)
== END ==
LOC: M LAB 14:29
PROVIDERS: ATTEND Family Medicine
DX: I10 Essential (primary) hypertension (principal)

== ENCOUNTER → 2025-02-18 | Outpatient (CLI) | payer OTHER | LOC: M RAD 13:25 | PROVIDERS: ATTEND Registered Nurse | DX: J43.9 Emphysema, unspecified (principal); J47.9 Bronchiectasis, uncomplicated; J98.4 Other disorders of lung; F17.210 Nicotine dependence, cigarettes, uncomplicated ==